=== PATIENT | male | born 1970 | race Caucasian/White ===

== ENCOUNTER 2018-06-25 02:32 | Emergency (ER) | payer MEDICAID ==
[~2018-06-25] VITALS: Ht 177.8 cm; Wt 81.6 kg
[2018-06-25] MEDS ORDERED: HYDROcodone-ACET 10/325MG TAB PO ONE (04:15)
[2018-06-25 04:40] VITALS: BP 124/85
== END 2018-06-25 04:42 | disposition home or self-care (01) ==
LOC: EDBD 02:32 → ER 02:32
DX: S16.1XXA Strain of muscle, fascia and tendon at neck level, initial encounter (principal); S29.019A Strain of muscle and tendon of unspecified wall of thorax, initial encounter; S30.0XXA Contusion of lower back and pelvis, initial encounter; F17.210 Nicotine dependence, cigarettes, uncomplicated; Z88.0 Allergy status to penicillin; Z88.1 Allergy status to other antibiotic agents; W11.XXXA Fall on and from ladder, initial encounter; Y93.89 Activity, other specified; Y99.8 Other external cause status; Y92.89 Other specified places as the place of occurrence of the external cause
CPT/HCPCS: 70450; 71250; 72125; 72128; 72131; 74176

== ENCOUNTER 2020-02-17 23:09 | Emergency (ER) | payer MEDICAID ==
[~2020-02-17] VITALS: Ht 177.8 cm; Wt 74.8 kg
[2020-02-18 00:16] LABS: Neutrophils % (auto) 78.8 % (37.0-80.0)
[2020-02-18 00:18] LABS: Basophils # (auto) 0.1 10 ^3/uL (0-0.2); Basophils % (auto) 0.7 % (0.0-2.0); Eosinophils # (auto) 0.1 10 ^3/uL (0-0.8); Eosinophils % (auto) 0.5 % (0.0-7.0); Hematocrit 44.5 % (41.0-53.0); Hemoglobin 14.7 g/dL (13.5-17.5); Lymphocytes # (auto) 1.6 10 ^3/uL (0.4-5.4); Lymphocytes % (auto) 12.1 % (10.0-50.0); Mean Corpuscular Hemoglobin 28.9 pg (28.0-32.0); Mean Corpuscular Hgb Conc. 33.1 g/dL (32.0-36.0); Mean Corpuscular Volume 87.3 fL (80.0-100.0); Monocytes # (auto) 1.1 10 ^3/uL (0-1.3); Monocytes % (auto) 7.9 % (0.0-12.0); Neutrophils # (auto) 10.7 10 ^3/uL (1.6-8.6); Platelet Count (auto) 515 10^3/uL (140-450); Red Cell Distribution Width 14.6 % (11.8-14.3); White Blood Cell 13.5 10^3/uL (4.4-10.8)
[2020-02-18 00:38] LABS: Albumin 4.1 g/dL (3.4-5.0); Calcium 9.7 mg/dL (8.5-10.1); Potassium 3.9 mmol/L (3.5-5.1)
[2020-02-18 00:42] LABS: Bilirubin, Total 0.3 mg/dL (0.2-1.0)
[2020-02-18 00:54] LABS: BUN/Creatinine Ratio 14.9
[2020-02-18 01:08] VITALS: BP 168/99
== END 2020-02-18 03:05 | disposition home or self-care (01) ==
LOC: ER 23:12
DX: S81.801A Unspecified open wound, right lower leg, initial encounter (principal); L03.115 Cellulitis of right lower limb; Z88.0 Allergy status to penicillin; Z88.1 Allergy status to other antibiotic agents; X58.XXXA Exposure to other specified factors, initial encounter; Y93.89 Activity, other specified; Y92.89 Other specified places as the place of occurrence of the external cause; Y99.8 Other external cause status
CPT/HCPCS: 36415; 73700; 80053; 83605; 85025; 87040; 93971

== ENCOUNTER 2021-01-18 22:31 | Emergency (ER) | payer MEDICAID ==
[~2021-01-18] VITALS: Ht 177.8 cm; Wt 86.2 kg
[2021-01-18] MEDS ORDERED: IBUPROFEN 600 MG TAB PO ONE (23:45)
[2021-01-18] MEDS ORDERED: SULFAMETHOX W/TRIMETH(800/160MG) DS TAB PO ONE (23:45)
[2021-01-18] MEDS ORDERED: HYDROcodone-ACET 10/325MG TAB PO ONE (23:45)
[2021-01-18] MEDS ORDERED: DOXYCYCLINE 100 MG TAB/CAP PO ONE (23:45)
[2021-01-19 02:16] VITALS: BP 136/80
== END 2021-01-19 03:05 | disposition left against medical advice (07) ==
LOC: ER 22:33
DX: S83.91XA Sprain of unspecified site of right knee, initial encounter (principal); L03.115 Cellulitis of right lower limb; F17.210 Nicotine dependence, cigarettes, uncomplicated; Z88.0 Allergy status to penicillin; Z88.1 Allergy status to other antibiotic agents; X50.1XXA Overexertion from prolonged static or awkward postures, initial encounter; Y93.89 Activity, other specified; Y92.89 Other specified places as the place of occurrence of the external cause; Y99.8 Other external cause status
CPT/HCPCS: 73562; 93971

== ENCOUNTER 2021-01-21 08:12 | Inpatient (IN) | payer MEDICAID ==
[~2021-01-21] VITALS: Ht 175.3 cm; Wt 87.3 kg
[2021-01-21] MEDS ORDERED: KETOROLAC TROMETH 60MG/2ML VIAL IM ONE (09:00)
[2021-01-21] MEDS ORDERED: SODIUM CHLORIDE 0.9% 1,000 ML IV ONE ×2 (10:00)
[2021-01-21] MEDS ORDERED: CLINDAMYCIN 900MG IV 50 ML IV ONE (10:00)
[2021-01-21 11:02] LABS: Basophils # (auto) 0 10 ^3/uL (0-0.2); Basophils % (auto) 0.5 % (0.0-2.0); Eosinophils # (auto) 0.4 10 ^3/uL (0-0.8); Hematocrit 38.9 % (41.0-53.0); Hemoglobin 13.3 g/dL (13.5-17.5); Lymphocytes # (auto) 1.9 10 ^3/uL (0.4-5.4); Lymphocytes % (auto) 24.2 % (10.0-50.0); Mean Corpuscular Hemoglobin 28.6 pg (28.0-32.0); Mean Corpuscular Hgb Conc. 34.1 g/dL (32.0-36.0); Mean Corpuscular Volume 83.8 fL (80.0-100.0); Monocytes # (auto) 0.9 10 ^3/uL (0-1.3); Monocytes % (auto) 10.7 % (0.0-12.0); Neutrophils # (auto) 4.8 10 ^3/uL (1.6-8.6); Neutrophils % (auto) 59.6 % (37.0-80.0); Nucleated Red Blood Cells % 0.1 %; Platelet Count (auto) 422 10^3/uL (140-450); Red Blood Cells 4.64 10^6/uL (4.5-5.90); Red Cell Distribution Width 14.2 % (11.8-14.3)
[2021-01-21 11:14] LABS: Albumin 3.4 g/dL (3.4-5.0); Anion Gap 4 (5-15); Blood Urea Nitrogen 12 mg/dL (7-18); Calcium 8.9 mg/dL (8.5-10.1); Carbon Dioxide 29 mmol/L (21-32); Chloride 103 mmol/L (98-107); Glucose 87 mg/dL (74-106); Potassium 3.8 mmol/L (3.5-5.1); Sodium 136 mmol/L (136-145)
[2021-01-21 11:19] LABS: Alanine Aminotransferase 22 U/L (16-61); Alkaline Phosphatase 73 U/L (45-117); Aspartate Aminotransferase 17 U/L (15-37); BUN/Creatinine Ratio 11.9; Bilirubin, Total 0.3 mg/dL (0.2-1.0); GFR African American 101 mL/min; GFR Non-African American 83 mL/min
[2021-01-21 11:20] LABS: INR 0.98 (0.9-1.15); Partial Thromboplastin Time 27.4 sec (23.0-31.2)
[2021-01-21] MEDS ORDERED: NITROGLYCERIN 0.4 MG SL TAB SL PRN (12:15)
[2021-01-21] MEDS ORDERED: MORPHINE SULF INJ 2 MG/ML SYRINGE 1ML IV PRN (12:15)
[2021-01-21] MEDS ORDERED: DOCUSATE SOD 100 MG CAP PO PRN (12:15)
[2021-01-21] MEDS ORDERED: TEMAZEPAM 15 MG CAP PO PRN (12:15)
[2021-01-21] MEDS ORDERED: ONDANSETRON HCL 4 MG/2 ML VIAL IV PRN (12:15)
[2021-01-21] MEDS ORDERED: HYDROcodone-ACET 5/325MG TAB PO PRN (12:15)
[2021-01-21] MEDS ORDERED: ACETAMINOPHEN 325 MG TAB PO PRN (12:15)
[2021-01-21] MEDS ORDERED: hydrALAZINE HCL 20 MG/ML VL IV PRN (12:30)
[2021-01-21] MEDS: amLODIPine BESYLATE 5 MG TAB PO SCH (12:40)
[2021-01-21] MEDS ORDERED: MORPHINE SULFATE 4 MG/ML SYR/VIAL IV ONE (13:30)
[2021-01-21] MEDS ORDERED: ONDANSETRON HCL 4 MG/2 ML VIAL IV ONE (13:30)
[2021-01-21] MEDS: CLINDAMYCIN 600MG IV 50 ML IV SCH (14:00)
[2021-01-21] MEDS: MORPHINE SULFATE 4 MG/ML SYR/VIAL IV PRN ×2 (16:13→20:57)
[2021-01-21] MEDS: GABAPENTIN 300 MG CAP PO SCH (16:14)
[2021-01-21 16:45] VITALS: BP 134/81
[2021-01-21] MEDS ORDERED: HYDR-4798 PO (17:42)
[2021-01-21] MEDS ORDERED: SULF800T7 PO (17:42)
[2021-01-21] MEDS ORDERED: NIC21P TOP (17:42)
[2021-01-21] MEDS ORDERED: PAR20T PO (17:42)
[2021-01-21] MEDS ORDERED: ALPR1TAB2 PO (17:42)
[2021-01-21] MEDS ORDERED: ASPI-231 PO (17:42)
[2021-01-22] MEDS: FAMOTIDINE 20 MG TAB PO SCH ×2 (00:01→07:51)
[2021-01-22] MEDS: ASCORBIC ACID 500 MG TAB PO SCH ×2 (00:01→07:51)
[2021-01-22] MEDS: GABAPENTIN 300 MG CAP PO SCH ×2 (00:02→05:37)
[2021-01-22] MEDS: CLINDAMYCIN 600MG IV 50 ML IV SCH ×2 (00:03→05:37)
[2021-01-22 00:24] VITALS: BP 141/94
[2021-01-22 05:41] VITALS: BP 143/74
[2021-01-22] MEDS: MORPHINE SULFATE 4 MG/ML SYR/VIAL IV PRN (07:50)
[2021-01-22 09:31] LABS: Potassium 3.9 mmol/L (3.5-5.1)
[2021-01-22 09:33] LABS: Basophils # (auto) 0 10 ^3/uL (0-0.2); Basophils % (auto) 0.5 % (0.0-2.0); Eosinophils # (auto) 0.4 10 ^3/uL (0-0.8); Eosinophils % (auto) 5.4 % (0.0-7.0); Hematocrit 42.7 % (41.0-53.0); Lymphocytes # (auto) 1.5 10 ^3/uL (0.4-5.4); Lymphocytes % (auto) 19.6 % (10.0-50.0); Mean Corpuscular Hemoglobin 27.9 pg (28.0-32.0); Mean Corpuscular Hgb Conc. 32.9 g/dL (32.0-36.0); Mean Corpuscular Volume 84.9 fL (80.0-100.0); Monocytes # (auto) 0.8 10 ^3/uL (0-1.3); Monocytes % (auto) 9.9 % (0.0-12.0); Neutrophils % (auto) 64.6 % (37.0-80.0); Platelet Count (auto) 382 10^3/uL (140-450); Red Blood Cells 5.02 10^6/uL (4.5-5.90); Red Cell Distribution Width 14.3 % (11.8-14.3); White Blood Cell 7.7 10^3/uL (4.4-10.8)
[2021-01-22] MEDS: amLODIPine BESYLATE 5 MG TAB PO SCH (09:42)
[2021-01-22 09:43] LABS: Albumin 3.3 g/dL (3.4-5.0); BUN/Creatinine Ratio 11.8; Bilirubin, Total 0.4 mg/dL (0.2-1.0); Calcium 8.8 mg/dL (8.5-10.1)
[2021-01-22] MEDS ORDERED: MULTIPLE VITAMIN TAB PO SCH (10:00)
[2021-01-22] MEDS ORDERED: ENOXAPARIN SOD 40 MG/0.4 ML SYRINGE SC SCH (10:00)
[2021-01-22] MEDS ORDERED: PARoxetine 20 MG TAB PO SCH (10:00)
[2021-01-22] MEDS ORDERED: ZINC SULFATE 220mg CAP or TAB PO SCH (10:00)
== END 2021-01-22 10:15 | disposition left against medical advice (07) | DRG 383 ==
LOC: ER 08:12 → EDUNIT# 08:12 → EDBD 08:12 → TELE 12:07 → TELE-WESTW 15:23
PROVIDERS: ADMIT Nurse Practitioner; ATTEND Nurse Practitioner
DX: L03.115 Cellulitis of right lower limb (principal); F10.10 Alcohol abuse, uncomplicated; F11.10 Opioid abuse, uncomplicated; F17.200 Nicotine dependence, unspecified, uncomplicated; I10 Essential (primary) hypertension; Z20.822 Contact with and (suspected) exposure to COVID-19; Z88.0 Allergy status to penicillin; Z88.1 Allergy status to other antibiotic agents
CPT/HCPCS: 36415; 71045; 73700; 80053; 83605; 84484; 85025; 85610; 85730; 87040; 87081; 87426; 93005; 96361; 96365; G0378; J2405; J3490

== ENCOUNTER 2023-11-23 18:23 | Emergency (ER) | payer MEDICAID ==
[~2023-11-23] VITALS: Ht 177.8 cm; Wt 82.0 kg
[~2023-11-23 18:23] MED LIST: ALPR1TAB2 PO; ASPI1TAB20 PO; HYDR-4798 PO; NIC21P TOP; PAR20T PO; SULF800T23 PO
[2023-11-23] MEDS: LIDOCAINE 1% HCL (LOCAL ANESTH.) INJ 20ML MDV ID ONE (19:05)
[2023-11-23] MEDS: TETANUS-DIPTH-ACEL PERTUSSIS 0.5ML SYR Tdap IM ONE (19:07)
[2023-11-23 20:00] VITALS: PULSE 78; RESP 13; TEMP 98; O2SAT 92
[2023-11-23] MEDS: HYDROcodone-ACET 10/325MG TAB PO ONE (20:44)
[2023-11-23] MEDS ORDERED: AMOXICILLIN/CLAVUL 875 MG TAB PO ONE (21:45)
[2023-11-23] MEDS ORDERED: AUG875T PO (21:59)
[2023-11-23] MEDS ORDERED: ACE3T PO (21:59)
[2023-11-23] MEDS ORDERED: IBUP-1455 PO (21:59)
[2023-11-23] MEDS ORDERED: CLIN300C70 PO (22:31)
[2023-11-23] MEDS ORDERED: BACDST PO (22:31)
[2023-11-23] MEDS: SULFAMETHOX W/TRIMETH(800/160MG) DS TAB PO ONE (22:48)
[2023-11-23] MEDS: CLINDAMYCIN HCL 150 MG CAP PO ONE (22:49)
[2023-11-23 22:55] VITALS: BP 147/89; PULSE 87; RESP 14; O2SAT 95
== END 2023-11-23 22:55 | disposition home or self-care (01) ==
LOC: EDBD 18:23 → ER 18:23
DX: S31.31XA Laceration without foreign body of scrotum and testes, initial encounter (principal); S31.35XA Open bite of scrotum and testes, initial encounter; I10 Essential (primary) hypertension; Z87.891 Personal history of nicotine dependence; Z88.0 Allergy status to penicillin; Z88.1 Allergy status to other antibiotic agents; W54.0XXA Bitten by dog, initial encounter; Y93.89 Activity, other specified; Y92.89 Other specified places as the place of occurrence of the external cause; Y99.8 Other external cause status
CPT/HCPCS: 12001; 76870; 90471; 90715

== ENCOUNTER 2024-03-30 21:32 | Inpatient (IN) | payer MEDICAID ==
[~2024-03-30] VITALS: Ht 177.8 cm; Wt 81.8 kg
[~2024-03-30 21:32] MED LIST changes: +ACE3T PO; +BACDST PO; +CLIN1CAP70 PO; +IBUP-1455 PO
[2024-03-30 22:39] LABS: Basophils # (auto) 0 10 ^3/uL (0-0.2); Basophils % (auto) 0.2 % (0.0-2.0); Eosinophils # (auto) 0 10 ^3/uL (0-0.8); Hematocrit 40.7 % (41.0-53.0); Hemoglobin 13.8 g/dL (13.5-17.5); Lymphocytes # (auto) 0.3 10 ^3/uL (0.4-5.4); Lymphocytes % (auto) 3.8 % (10.0-50.0); Mean Corpuscular Hemoglobin 29.3 pg (28.0-32.0); Mean Corpuscular Hgb Conc. 33.9 g/dL (32.0-36.0); Mean Corpuscular Volume 86.5 fL (80.0-100.0); Monocytes # (auto) 0.5 10 ^3/uL (0-1.3); Monocytes % (auto) 5.6 % (0.0-12.0); Neutrophils # (auto) 7.9 10 ^3/uL (1.6-8.6); Neutrophils % (auto) 90.4 % (37.0-80.0); Red Blood Cells 4.71 10^6/uL (4.5-5.90); Red Cell Distribution Width 13.5 % (11.8-14.3); White Blood Cell 8.8 10^3/uL (4.4-10.8)
[2024-03-30 22:58] LABS: INR 1.03 (0.9-1.15); Prothrombin Time 10.9 sec (9.3-11.8)
[2024-03-30 23:04] VITALS: PULSE 96; RESP 39; O2SAT 92
[2024-03-30 23:04] LABS: Alanine Aminotransferase 37 U/L (7-40); Albumin 4.1 g/dL (3.2-4.8); Alkaline Phosphatase 60 U/L (46-116); Anion Gap 9 (5-15); Aspartate Aminotransferase 50 U/L (13-40); BUN/Creatinine Ratio 17.4 (10.0-20.0); Blood Alcohol < 3.0 mg/dL (<10); Blood Urea Nitrogen 12 mg/dL (9-23); Calcium 9.1 mg/dL (8.5-10.1); Carbon Dioxide 23 mmol/L (20-30); Chloride 103 mmol/L (98-107); Glucose 115 mg/dL (74-106); Sodium 135 mmol/L (136-145)
[2024-03-30 23:05] LABS: Bilirubin, Total 0.5 mg/dL (0.2-1.0); Total Protein 6.3 g/dL (5.7-8.2)
[2024-03-31] VITALS (7 sets, daily range): BP systolic 118–132; BP diastolic 63–69; PULSE 66–92; RESP 14–20; TEMP 97.6–100.1; O2SAT 96–100
[2024-03-31] MEDS: FUROSEMIDE 40 MG/4 ML VIAL IV ONE (08:26)
[2024-03-31] MEDS: CLINDAMYCIN 900MG IV 50 ML IV ONE (08:26)
[2024-03-31 08:44] LABS: Urine Bacteria None Seen /hpf (None Seen)
[2024-03-31 08:59] LABS: Urine Blood Negative /uL (Negative); Urine Clarity Clear (Clear); Urine Color Yellow (Yellow); Urine Protein, UAD TRACE (Negative); Urine Specific Gravity 1.027 (1.001-1.035); Urine Urobilinogen 3 mg/dL (Negative); Urine WBC <1 /hpf (0 - 3)
[2024-03-31 09:12] LABS: Amphetamine Screen, Urine Pos (NEGATIVE); Barbiturate Scree,Urine Neg (NEGATIVE); Benzodiazephine Screen, Urine Neg (NEGATIVE); Cannabinoid Screen, Urine Neg (NEGATIVE); Cocaine Screen, Urine Neg (NEGATIVE); Opiate Scree,Urine Neg (NEGATIVE); Phencyclidine Screen, Urine Neg (NEGATIVE)
[2024-03-31] MEDS ORDERED: MORPHINE SULFATE INJ 2 MG/ml SYRG IV PRN (11:45)
[2024-03-31] MEDS ORDERED: NITROGLYCERIN 0.4 MG SL TAB SL PRN (11:45)
[2024-03-31] MEDS ORDERED: DOCUSATE SOD 100 MG CAP PO PRN (11:45)
[2024-03-31] MEDS: NALOXONE HCL 0.4 MG/ML VIAL IV ONE (12:06)
[2024-03-31] MEDS: SODIUM CHLORIDE 0.9% 1,000 ML IV SCH (12:08)
[2024-03-31] MEDS: ENOXAPARIN SOD 40 MG/0.4 ML SYRINGE SC SCH (12:08)
[2024-03-31] MEDS: CLINDAMYCIN 300MG IV 50 ML IV SCH (17:49)
[2024-04-01] VITALS (8 sets, daily range): BP systolic 104–146; BP diastolic 68–88; PULSE 61–86; RESP 17–21; TEMP 97.9–99.2; O2SAT 92–99
[2024-04-01] MEDS: MORPHINE SULFATE INJ 2 MG/ml SYRG IV PRN (11:08)
[2024-04-01] MEDS: POTASSIUM EFFERVESENT TAB 25 MEQ PO ONE (11:08)
[2024-04-01] MEDS: LOPERAMIDE HCL 2 MG CAP/TAB PO ONE (13:13)
[2024-04-01] MEDS: ONDANSETRON HCL 4 MG/2 ML VIAL IV PRN (13:29)
[2024-04-01] MEDS ORDERED: MEROPENEM 1GM IVPB 50 ML IV SCH (14:00)
[2024-04-01] MEDS ORDERED: VANCOMYCIN PER PHARMACY 0 MG IV SCH (14:45)
[2024-04-01] MEDS ORDERED: NICO14DI29 TD (15:28)
[2024-04-01] MEDS: VANCOMYCIN 1GM/200ML 200 ML IV ONE (16:12)
[2024-04-01] MEDS: NICOTINE 21MG/24 HR TOPICAL PATCH TD ONE (16:13)
[2024-04-01] MEDS: MEROPENEM 1GM IVPB 50 ML IV SCH (17:33)
[2024-04-01] MEDS ORDERED: PERCOT PO (18:31)
[2024-04-01 20:21] LABS: Basophils # (auto) 0 10 ^3/uL (0-0.2); Basophils % (auto) 0.1 % (0.0-2.0); Eosinophils # (auto) 0 10 ^3/uL (0-0.8); Hematocrit 40.7 % (41.0-53.0); Hemoglobin 13.9 g/dL (13.5-17.5); Lymphocytes # (auto) 1.6 10 ^3/uL (0.4-5.4); Lymphocytes % (auto) 8.2 % (10.0-50.0); Mean Corpuscular Hemoglobin 29.6 pg (28.0-32.0); Mean Corpuscular Hgb Conc. 34.2 g/dL (32.0-36.0); Mean Corpuscular Volume 86.5 fL (80.0-100.0); Monocytes % (auto) 5.2 % (0.0-12.0); Neutrophils # (auto) 17.3 10 ^3/uL (1.6-8.6); Neutrophils % (auto) 86.5 % (37.0-80.0); Red Blood Cells 4.71 10^6/uL (4.5-5.90); Red Cell Distribution Width 13.8 % (11.8-14.3); White Blood Cell 19.9 10^3/uL (4.4-10.8)
[2024-04-01 20:50] LABS: Alanine Aminotransferase 22 U/L (7-40); Albumin 3.5 g/dL (3.2-4.8); Alkaline Phosphatase 51 U/L (46-116); Anion Gap 12 (5-15); Aspartate Aminotransferase 12 U/L (13-40); BUN/Creatinine Ratio 19.6 (10.0-20.0); Bilirubin, Total 0.4 mg/dL (0.2-1.0); Blood Urea Nitrogen 11 mg/dL (9-23); Calcium 8.9 mg/dL (8.7-10.4); Carbon Dioxide 19 mmol/L (20-30); Chloride 102 mmol/L (98-107); Glucose 103 mg/dL (74-106); Potassium 2.9 mmol/L (3.5-5.1); Sodium 133 mmol/L (136-145); Total Protein 6.1 g/dL (5.7-8.2)
[2024-04-01] MEDS: LOPERAMIDE HCL 2 MG CAP/TAB PO PRN (23:05)
[2024-04-02] VITALS (8 sets, daily range): BP systolic 115–130; BP diastolic 63–85; PULSE 62–79; RESP 17–21; TEMP 97.7–98.2; O2SAT 93–98
[2024-04-02] MEDS ORDERED: VANCOMYCIN 1GM/200ML 200 ML IV SCH
[2024-04-02] MEDS: POTASSIUM CHL 20 Meq TABLET PO ONE ×2 (03:13→09:31)
[2024-04-02] MEDS: NICOTINE 21MG/24 HR TOPICAL PATCH TD SCH (09:31)
[2024-04-02 11:45] LABS: Basophils # (auto) 0 10 ^3/uL (0-0.2); Basophils % (auto) 0.4 % (0.0-2.0); Eosinophils # (auto) 0 10 ^3/uL (0-0.8); Eosinophils % (auto) 0.1 % (0.0-7.0); Hematocrit 31.7 % (41.0-53.0); Lymphocytes # (auto) 1.2 10 ^3/uL (0.4-5.4); Lymphocytes % (auto) 11.2 % (10.0-50.0); Mean Corpuscular Hemoglobin 29.9 pg (28.0-32.0); Mean Corpuscular Hgb Conc. 34.8 g/dL (32.0-36.0); Mean Corpuscular Volume 86.1 fL (80.0-100.0); Monocytes # (auto) 0.6 10 ^3/uL (0-1.3); Monocytes % (auto) 5.5 % (0.0-12.0); Neutrophils # (auto) 8.6 10 ^3/uL (1.6-8.6); Neutrophils % (auto) 82.8 % (37.0-80.0); Red Blood Cells 3.68 10^6/uL (4.5-5.90); White Blood Cell 10.4 10^3/uL (4.4-10.8)
[2024-04-02 11:59] LABS: Alanine Aminotransferase 19 U/L (7-40); Alkaline Phosphatase 39 U/L (46-116); Anion Gap 5 (5-15); Aspartate Aminotransferase 11 U/L (13-40); BUN/Creatinine Ratio 22.2 (10.0-20.0); Bilirubin, Total 0.3 mg/dL (0.2-1.0); Blood Urea Nitrogen 10 mg/dL (9-23); Calcium 7.7 mg/dL (8.5-10.1); Carbon Dioxide 23 mmol/L (20-30); Chloride 109 mmol/L (98-107); Glucose 123 mg/dL (74-106); Sodium 137 mmol/L (136-145)
[2024-04-02] MEDS: PANTOPRAZOLE 40 MG/10 ML VIAL INJ IV ONE (17:09)
[2024-04-03] VITALS (7 sets, daily range): BP systolic 113–149; BP diastolic 71–90; PULSE 54–76; RESP 16–19; TEMP 97.3–98.4; O2SAT 90–97
[2024-04-03] MEDS: PANTOPRAZOLE 40 MG/10 ML VIAL INJ IV SCH (09:59)
[2024-04-03 13:29] LABS: Basophils # (auto) 0.1 10 ^3/uL (0-0.2); Basophils % (auto) 0.8 % (0.0-2.0); Eosinophils # (auto) 0.1 10 ^3/uL (0-0.8); Eosinophils % (auto) 1.6 % (0.0-7.0); Lymphocytes # (auto) 1.8 10 ^3/uL (0.4-5.4); Lymphocytes % (auto) 24.8 % (10.0-50.0); Mean Corpuscular Hemoglobin 29.7 pg (28.0-32.0); Mean Corpuscular Hgb Conc. 34.3 g/dL (32.0-36.0); Mean Corpuscular Volume 86.3 fL (80.0-100.0); Monocytes # (auto) 0.6 10 ^3/uL (0-1.3); Monocytes % (auto) 8.2 % (0.0-12.0); Neutrophils # (auto) 4.7 10 ^3/uL (1.6-8.6); Neutrophils % (auto) 64.6 % (37.0-80.0); Nucleated Red Blood Cells % 0.1 %; White Blood Cell 7.2 10^3/uL (4.4-10.8)
[2024-04-03 13:41] LABS: Chloride 108 mmol/L (98-107); Potassium 3.6 mmol/L (3.5-5.1); Sodium 140 mmol/L (136-145)
[2024-04-03 13:42] LABS: Anion Gap 5 (5-15); Calcium 8.7 mg/dL (8.5-10.1); Carbon Dioxide 27 mmol/L (20-30)
[2024-04-03 13:47] LABS: BUN/Creatinine Ratio 15.9 (10.0-20.0); Blood Urea Nitrogen 10 mg/dL (9-23); Glucose 101 mg/dL (74-106)
[2024-04-03] MEDS: cefTRIAXone 1GM/50ML D5W 50 ML IV SCH (17:52)
[2024-04-04] VITALS (8 sets, daily range): BP systolic 117–157; BP diastolic 69–97; PULSE 59–73; RESP 16–18; TEMP 97.3–98.5; O2SAT 93–99
[2024-04-04] MEDS: ENOXAPARIN SOD 40 MG/0.4 ML SYRINGE SC SCH (09:19)
[2024-04-04 09:36] LABS: Hepatitis B Surface Antigen Negative (Negative)
[2024-04-04 09:44] LABS: Basophils # (auto) 0.1 10 ^3/uL (0-0.2); Basophils % (auto) 0.8 % (0.0-2.0); Eosinophils # (auto) 0.3 10 ^3/uL (0-0.8); Eosinophils % (auto) 3.1 % (0.0-7.0); Hematocrit 37.4 % (41.0-53.0); Hemoglobin 12.7 g/dL (13.5-17.5); Lymphocytes # (auto) 1.7 10 ^3/uL (0.4-5.4); Lymphocytes % (auto) 20.2 % (10.0-50.0); Mean Corpuscular Hemoglobin 30.1 pg (28.0-32.0); Mean Corpuscular Volume 88.3 fL (80.0-100.0); Monocytes # (auto) 0.7 10 ^3/uL (0-1.3); Monocytes % (auto) 8.3 % (0.0-12.0); Neutrophils # (auto) 5.6 10 ^3/uL (1.6-8.6); Neutrophils % (auto) 67.6 % (37.0-80.0); Red Blood Cells 4.24 10^6/uL (4.5-5.90); Red Cell Distribution Width 14.2 % (11.8-14.3); White Blood Cell 8.3 10^3/uL (4.4-10.8)
[2024-04-04 09:57] LABS: Chloride 109 mmol/L (98-107); Potassium 3.5 mmol/L (3.5-5.1); Sodium 138 mmol/L (136-145)
[2024-04-04 09:58] LABS: Anion Gap 4 (5-15); Carbon Dioxide 25 mmol/L (20-30)
[2024-04-04 10:03] LABS: BUN/Creatinine Ratio 10.7 (10.0-20.0); Blood Urea Nitrogen 6 mg/dL (9-23); Glucose 95 mg/dL (74-106)
[2024-04-04 10:20] LABS: Calcium 8.3 mg/dL (8.5-10.1)
[2024-04-04 11:34] LABS: Hepatitis C Antibody Reactive (Negative)
[2024-04-04] MEDS: FUROSEMIDE 40 MG/4 ML VIAL IV ONE (13:08)
[2024-04-05] VITALS (8 sets, daily range): BP systolic 121–151; BP diastolic 73–98; PULSE 59–85; RESP 16–18; TEMP 97.8–99.2; O2SAT 94–96
[2024-04-05] MEDS: cefTRIAXone 1GM/50ML D5W 50 ML IV SCH (12:12)
[2024-04-05] MEDS: FUROSEMIDE 20 MG/2 ML VIAL IV SCH (12:12)
[2024-04-05 13:15] LABS: Erythrocyte Sedimentation Rate 25 mm/hr (0-20)
[2024-04-06 05:00] VITALS: BP 149/88; PULSE 78; RESP 19; TEMP 98.8; O2SAT 97
[2024-04-06 08:00] VITALS: PULSE 76; RESP 18; O2SAT 96
[2024-04-06 08:32] VITALS: BP 154/96; PULSE 67; RESP 15; TEMP 97.6; O2SAT 97
[2024-04-06] MEDS: LISINOPRIL 5 MG TAB PO SCH (10:00)
[2024-04-06] MEDS ORDERED: IOHEXOL 300 MG/ML 100ML BOTTLE IJ ONE (12:29)
[2024-04-06 12:52] VITALS: BP 156/85; PULSE 69; RESP 15; TEMP 97.6; O2SAT 97
[2024-04-06 16:21] VITALS: BP 133/93; PULSE 68; RESP 16; TEMP 97.2; O2SAT 95
[2024-04-06 16:33] VITALS: BP 112/76; PULSE 76; RESP 16
== END 2024-04-06 20:10 | disposition home or self-care (01) | DRG 383 ==
LOC: ER 21:32 → EDUNIT# 21:32 → EDBD 21:32 → OVERFLOW 03-31 11:41 → ER 03-31 11:41 → CENTRAL 03-31 15:45
PROVIDERS: ADMIT Internal Medicine; ATTEND Internal Medicine
PROC: 05H933Z Insertion of Infusion Device into Right Brachial Vein, Percutaneous Approach (ICD-10-PCS; principal; 2024-04-02)
DX: L03.116 Cellulitis of left lower limb (principal); J96.01 Acute respiratory failure with hypoxia; G92.9 Unspecified toxic encephalopathy; R78.81 Bacteremia; L03.115 Cellulitis of right lower limb; I11.0 Hypertensive heart disease with heart failure; E87.6 Hypokalemia; B19.20 Unspecified viral hepatitis C without hepatic coma; I50.32 Chronic diastolic (congestive) heart failure; E86.0 Dehydration; F11.90 Opioid use, unspecified, uncomplicated; F17.200 Nicotine dependence, unspecified, uncomplicated; Z74.01 Bed confinement status; Z82.49 Family history of ischemic heart disease and other diseases of the circulatory system; Z88.0 Allergy status to penicillin; B96.89 Other specified bacterial agents as the cause of diseases classified elsewhere
CPT/HCPCS: 36415; 71045; 73701; 80048; 80053; 80307; 80320; 81001; 83605; 83735; 83880; 84484; 85025; 85610; 85652; 85730; 86141; 86803; 87040; 87077; 87081; 87086; 87186; 87340; 93005; 93306; 93970; G0378; J2185; J2405; J2470; J3490

== ENCOUNTER 2024-12-29 01:29 | Inpatient (IN) | payer MEDICAID ==
[2024-12-29] VITALS (8 sets, daily range): BP systolic 138–158; BP diastolic 90–91; PULSE 86–109; RESP 16–22; TEMP 97.9–98.9; O2SAT 96–99
[~2024-12-29] VITALS: Ht 165.1 cm; Wt 76.2 kg
[~2024-12-29 01:29] MED LIST changes: -ALPR1TAB2 PO; -ASPI1TAB20 PO; -CLIN1CAP70 PO; -HYDR-4798 PO; -NIC21P TOP; +NICO14DI29 TD; -PAR20T PO; +PERCOT PO; -SULF800T23 PO
--- NOTE | 2024-12-29 03:53 | ED.PDOC ---
Musculoskeletal HPI Comments Pt BIBA with C/O left leg swelling and pain starting today. Pt has noted redness and swelling with skin breakdown and oozing to the left lower leg. Denies fever, chills, nausea, vomiting, chest pain, difficulty breathing, shortness of breath, abdominal pain, diarrhea, recent travel or ill contacts. Chief Complaint: Lower Extremity Time Seen by MD: 01:39 Primary Care Provider: NONE Reviewed Notes: Nurses Notes, Medications, Allergies Allergies: Coded Allergies: Amoxicillin (Verified Allergy, Unknown, 01/21/21) Penicillins (Verified Allergy, Unknown, 01/21/21) Home Meds Active Scripts Sulfamethoxazole W/Trimethopri (Bactrim Ds Tablet) 1 Tab Tb, 1 TAB PO BID for 10 Days, #20 TAB Prov:SANJAY GRIER PAC 11/23/23 Acetaminophen W/ Codeine (Tylenol W/Cod #3) 1 Tab Tb, 1 TAB PO Q6HP PRN, #15 TAB Prov:SANJAY GRIER PAC 11/23/23 Ibuprofen Micronized (Ibuprofen) 800 Mg Tab, 800 MG PO Q8HP PRN, #30 TAB Prov:SANJAY GRIER PAC 11/23/23 Reported Medications Oxycodone W/ Acetaminophen (Percocet 5/325MG) 1 Tab Tb, 2 TAB PO QID for pain, TAB 04/01/24 Nicotine (Nicotine Transdermal Syst) 14 Mg/24 Hr Dis, 14 MG TD DAILY, DIS 04/01/24 Information Source: Patient Mode of Arrival: EMS Past Medical History PAST MEDICAL HISTORY: CHF, HTN Surgical History: Denies all surgeries Family History Family History: Reviewed,noncontributory to illness, No family hx of Heart dipti Social History Smoker: Quit Less Than 1 Year, Cigarettes, Less Than 1 Pack/Day Alcohol: Denies ETOH Use Drugs: Heroin, Methamphetamine, Other Lives In: Home Constitutional: denies: chills, diaphoresis, fatigue, fever, malaise, sweats, weakness, others EENTM: denies: blurred vision, double vision, ear bleeding, ear discharge, ear drainage, ear pain, ear ringing, eye pain, eye redness, hearing loss, mouth pain, mouth swelling, nasal discharge, nose bleeding, nose congestion, nose pain, photophobia, tearing, throat pain, throat swelling, voice changes, others Respiratory: denies: cough, hemoptysis, orthopnea, SOB at rest, shortness of breath, SOB with excertion, stridor, wheezing, others Cardiovascular: denies: chest pain, dizzy spells, diaphoresis, Dyspnea on exertion, edema, irregular heart beat, left arm pain, lightheadedness, pa lpitations, PND, syncope, others Gastrointestinal: denies: abdomen distended, abdominal pain, blood streaked bowels, constipated, diarrhea, dysphagia, difficulty swallowing, hematemesis, melena, nausea, poor appetite, poor fluid intake, rectal bleeding, rectal pain, vomiting, others Genitourinary: denies: burning, dysuria, flank pain, frequency, hematuria, incontinence, penile discharge, penile sore, pain, testicle pain, testicle swelling, urgency, others Neurological: denies: dizziness, fainting, headache, left sided numbness, left sided weakness, numbness, paresthesia, pre-existing deficit, right sided numbness, right sided weakness, seizure, speech problems, tingling, tremors, weakness, others Musculoskeletal: denies: back pain, gout, joint pain, joint swelling, muscle pain, muscle stiffness, neck pain, others Integumetry: reports: wounds (LEFT LOWER LEG); denies: bruises, change in color, change in hair/nails, dryness, laceration, lesions, lumps, rash, others Allergic/Immunocompromised: denies: Difficulty Healing, Frequent Infections, Hives, Itching, others Hematologic/Lymphatic: denies: anemia, blood clots, easy bleeding, easy bruising, swollen glands, others Endocrine: denies: excessive hunger, excessive sweating, excessive thirst, excessive urination, flushing, intolerance to cold, intolerance to heat, unexplained weight gain, unexplained weight loss, others Psychiatric: denies: anxiety, bipolar disorder, depression, hopeless, panic disorder, schizophrenia, sleepless, suicidal, others Physical Exam General Appearance: No Apparent Distress, Normal HEENT: Pharynx Normal Neck: Full Range of Motion, Non-Tender Respiratory: Lungs Clear, No Respiratory Distress, Normal Breath Sounds Cardiovascular: No Edema, No JVD, No Murmur, No Gallop, Normal Peripheral Pulses, Regular Rate/Rhythm Breast Exam: Deferred Gastrointestinal: No Organomegaly, Non Tender, No Pulsatile Mass, Normal Bowel Sounds, Soft Genitalia: Deferred Pelvic: Deferred Rectal: Deferred Extremities: Calf tenderness, Inflammation, Leg edema, Normal capillary refill, Pedal edema, Swelling Musculoskeletal : Apperance: Normal Neurologic: Alert, flavoring machine operator II-XII nml as Tested, No Motor Deficits, Normal Affect, Normal Mood, No Sensory Deficits Cerebellar Function: Normal Reflexes: Normal Skin: Dry, Normal Color, Warm Lymphatic: No Adenopathy Was a procedure done? Was a procedure done?: No Differential Diagnosis EXT Differential Diagnosis: Cellulitis, Deep Vein Thrombosis, Compartment Syndrome X-Ray, Labs, Meds, VS Vital Signs Date Time Temp Pulse Resp B/P (MAP) Pulse Ox O2 Delivery O2 Flow Rate FiO2 12/29/24 05:37 109 22 96 Room Air* 0 21 12/29/24 05:32 98.2 109 22 159/98 (118) 98 98.2 12/29/24 02:58 109 16 99 Room Air 12/29/24 02:58 98.4 109 16 160/98 (118) 99 98.4 12/29/24 01:35 98.4 109 16 160/98 (118) 99 98.4 Lab Test 12/29/24 07:01 12/29/24 03:40 Range/Units Lactic Acid Level 1.0 0.4-2.0 mmol/L White Blood Count 17.4 H 4.4-10.8 10^3/uL Red Blood Count 3.89 L 4.5-5.90 10^6/uL Hemoglobin 11.7 L 13.5-17.5 g/dL Hematocrit 34.8 L 41.0-53.0 % Mean Corpuscular Volume 89.6 80.0-100.0 fL Mean Corpuscular Hemoglobin 30.1 28.0-32.0 pg Mean Corpuscular Hemoglobin Concent 33.6 32.0-36.0 g/dL Red Cell Distribution Width 14.3 11.8-14.3 % Platelet Count 402 140-450 10^3/uL Mean Platelet Volume 7.4 6.9-10.8 fL Neutrophils (%) (Auto) 79.7 37.0-80.0 % Lymphocytes (%) (Auto) 11.8 10.0-50.0 % Monocytes (%) (Auto) 7.1 0.0-12.0 % Eosinophils (%) (Auto) 0.5 0.0-7.0 % Basophils (%) (Auto) 0.9 0.0-2.0 % Neutrophils # (Auto) 13.8 H 1.6-8.6 10 ^3/uL Lymphocytes # (Auto) 2.1 0.4-5.4 10 ^3/uL Monocytes # (Auto) 1.2 0-1.3 10 ^3/uL Eosinophils # (Auto) 0.1 0-0.8 10 ^3/uL Basophils # (Auto) 0.2 0-0.2 10 ^3/uL Nucleated Red Blood Cells 0.1 % Sodium Level 134 L 136-145 mmol/L Potassium Level 3.9 3.5-5.1 mmol/L Chloride Level 99 98-107 mmol/L Carbon Dioxide Level 24 20-31 mmol/L Anion Gap 11 5-15 Blood Urea Nitrogen 8 L 9-23 mg/dL Creatinine 0.62 L 0.700-1.30 mg/dL Glomerular Filtration Rate Calc 114 >90 mL/min BUN/Creatinine Ratio 12.9 10.0-20.0 Serum Glucose 120 H 74-106 mg/dL Hemoglobin A1c 5.6 <5.7 % A1C Calcium Level 9.2 8.7-10.4 mg/dL Total Bilirubin 0.2 0.2-1.0 mg/dL Aspartate Amino Transferase (AST) 23 13-40 U/L Alanine Aminotransferase (ALT) 21 7-40 U/L Alkaline Phosphatase 54 46-116 U/L B-Type Natriuretic Peptide 44.29 0-100 pg/mL Total Protein 7.3 5.7-8.2 g/dL Albumin 4.0 3.2-4.8 g/dL Triglycerides Level 91 < 150 mg/dL Cholesterol Level 120 < 200 mg/dL LDL Cholesterol 79 < 100 mg/dL HDL Cholesterol 27 L 40-59 mg/dL Current Medications Medications (Trade) Dose Ordered Sig/Kiana Route Start Time Stop Time Status Last Admin Vancomycin HCl 250 ml @ 250 mls/hr ONCE ONCE IV 12/29/24 04:30 12/29/24 05:29 DC 12/29/24 07:00 Oxycodone/ Acetaminophen (Percocet 5/ 325MG Tablet) 1 tab ONCE ONCE PO 12/29/24 05:00 12/29/24 05:01 DC 4/6/25 05:35 X-Ray, Labs, Meds, VS Comment Imaging: Left lower extremity ultrasound service tech paged. Patient was a difficult stick difficulty obtaining enough blood work for blood cultures patient require ultrasound guided IV for further blood work and IV vancomycin. Patient placed for admission with hospitalist for left lower extremity cellulitis, and leukocytosis still pending venous Doppler. Ultrasound left lower extremity Impression: 1. No left femoropopliteal venous thrombosis. 2. Enlarged left inguinal lymph node. CBC [id number] MEDS: Vancomycin 1 g IV piggyback Percocet 5 mg p.o. PLAN: Placed for hospitalist for leukocytosis and left lower extremity cellulitis. Time of 1ST Reevaluation: 04:59 Reevaluation 1ST: Unchanged Patient Education/Counseling: Diagnosis, Treatment, Prognosis, Need For Follow Up Family Education/Counseling: No Family Present Departure 1 Departure Time of Disposition: 04:55 Impression: Primary Impression: Cellulitis of left lower leg Additional Impression: Leukocytosis Qualified Codes: D72.829 - Elevated white blood cell count, unspecified Disposition: 09 ADMITTED INPATIENT Condition: Stable Discharged With: Self Critical Care Note Critical Care Time?: No Stability Stability form required: ARABELLA Akbar Dec 29, 2024 03:53
[2024-12-29 03:54] LABS: Eosinophils # (auto) 0.1 10 ^3/uL (0-0.8); Eosinophils % (auto) 0.5 % (0.0-7.0)
[2024-12-29 03:57] LABS: Basophils # (auto) 0.2 10 ^3/uL (0-0.2); Basophils % (auto) 0.9 % (0.0-2.0); Hematocrit 34.8 % (41.0-53.0); Hemoglobin 11.7 g/dL (13.5-17.5); Lymphocytes # (auto) 2.1 10 ^3/uL (0.4-5.4); Lymphocytes % (auto) 11.8 % (10.0-50.0); Mean Corpuscular Hemoglobin 30.1 pg (28.0-32.0); Mean Corpuscular Hgb Conc. 33.6 g/dL (32.0-36.0); Mean Corpuscular Volume 89.6 fL (80.0-100.0); Monocytes # (auto) 1.2 10 ^3/uL (0-1.3); Monocytes % (auto) 7.1 % (0.0-12.0); Neutrophils # (auto) 13.8 10 ^3/uL (1.6-8.6); Neutrophils % (auto) 79.7 % (37.0-80.0); Nucleated Red Blood Cells % 0.1 %; Platelet Count (auto) 402 10^3/uL (140-450); Red Blood Cells 3.89 10^6/uL (4.5-5.90); Red Cell Distribution Width 14.3 % (11.8-14.3); White Blood Cell 17.4 10^3/uL (4.4-10.8)
[2024-12-29 04:08] LABS: Alanine Aminotransferase 21 U/L (7-40); Alkaline Phosphatase 54 U/L (46-116); Anion Gap 11 (5-15); Aspartate Aminotransferase 23 U/L (13-40); BUN/Creatinine Ratio 12.9 (10.0-20.0); Calcium 9.2 mg/dL (8.7-10.4); Carbon Dioxide 24 mmol/L (20-31); Chloride 99 mmol/L (98-107); Potassium 3.9 mmol/L (3.5-5.1); Total Protein 7.3 g/dL (5.7-8.2)
[2024-12-29 04:17] LABS: Bilirubin, Total 0.2 mg/dL (0.2-1.0); Blood Urea Nitrogen 8 mg/dL (9-23); Glucose 120 mg/dL (74-106); Sodium 134 mmol/L (136-145)
--- NOTE | 2024-12-29 05:00 | DVH ---
Left lower extremity venous duplex Clinical History: left lower leg edema, erythema, warmth and pain Comparison: RT LOWER DVT on DOS: 01/19/21, R VENOUS DVT LTD UNILATERAL on DOS: 02/18/20 Technique: Duplex Doppler evaluation of the deep venous system of the left lower extremity from the common femor al vein to the popliteal vein including color Doppler and spectral/pulsed waveform analysis was perfo rmed. Findings: The common femoral vein demonstrates appropriate compressibility and waveform variability. There is compressibility/patency of the great saphenous vein at the proximal thigh. The femoral vein demonstrates appropriate compressibility and waveform variability. The deep femoral vein demonstrates appropriate compressibility and waveform variability. The popliteal vein demonstrates appropriate compressibility and waveform variability. There is normal compressibility at the tibioperoneal trunk. Enlarged left inguinal lymph node measures 3.7 x 2.7 x 1.4 cm. Impression: 1. No left femoropopliteal venous thrombosis. 2. Enlarged left inguinal lymph node.
[2024-12-29] MEDS: OXYCODONE W/ ACETAMINOPHEN 5/325MG TABLET PO ONE (05:35)
[2024-12-29] MEDS: VANCOMYCIN 1GM/200ML PM 250 ML IV ONE (07:00)
[2024-12-29] MEDS ORDERED: ACETAMINOPHEN 325 MG TAB PO PRN (07:30)
[2024-12-29] MEDS: SODIUM CHLORIDE 0.9% 2,200 ML IV ONE (07:43)
--- NOTE | 2024-12-29 08:02 | DVH ---
CHEST RADIOGRAPH Indication: r/o sepsis Technique: Single frontal view of the chest was obtained Comparison: XY CHEST PORTABLE on DOS: 03/31/24, CHEST PORTABLE on DOS: 01/21/21 FINDINGS: The cardiac silhouette is enlarged. The lungs demonstrate patchy airspace opacities. The pulmonary va sculature is prominent. There is no pleural effusion.. There is no pneumothorax. IMPRESSION: 1. Cardiomegaly with pulmonary vascular congestion and bilateral patchy airspace opacities.
[2024-12-29] MEDS ORDERED: VANCOMYCIN PER PHARMACY 0 MG IV SCH (09:30)
[2024-12-29] MEDS ORDERED: hydrALAZINE HCL 20 MG/ML VL IV PRN (09:45)
--- NOTE | 2024-12-29 09:49 | DVHHP2 ---
History of Present Illness Reason for Visit: Lower extremity edema History of Present Illness This 54-year-old male with past medical history of CHF, hypertension, chronic low back pain, tobacco use, marijuana and heroin abuse, presents in the ED via EMS with a chief complaint of left lower extremity swelling. The patient rep orts left lower extremity edema started three days ago, and has progressed for the past few days. Patient states left lower extremity oozing clear liquid fluid for which prompted him to visit the emergency department. The patient states currently do not have cardiology that manages his congestive heart failure. He denies taking heart failure medication. Denies chest pain, palpitations, shortness of breath, dyspnea, or other acute symptoms. Past Medical History As stated in HPI Past Surgical History Denies Family History Reviewed, non-contributory to the management of this case. Past Social History Admits to tobacco use Denies current use of worse amphetamine and heroin Review of Systems Constitutional: Yes: Malaise; No: Fever, Chills, Sweats, Weakness, Other Eyes: No: Pain, Vision change, Conjunctivae inflammation, Eyelid inflammation, Other, Redness ENT: No: Ear pain, Ear discharge, Nose pain, Nose discharge, Nose congestion, Mouth pain, Mouth swelling, Throat pain, Throat swelling, Other Respiratory: No: Cough, Dry, Shortness of breath, SOB with excertion, Wheezing, Hemoptysis, Pleuritic Pain, Sputum, Wheezing, Other Cardiovascular: Other (Bilateral lower extremity); No: Chest Pain, Palpitations, Orthopnea, Paroxysmal Noc. Dyspnea, Edema, Lt Headedness Gastrointestinal: No: Nausea, Vomiting, Abdominal Pain, Diarrhea, Constipation, Melena, Hematochezia, Other Genitourinary: No Dysuria, No Frequency, No Incontinence, No Hematuria, No Retention, No Other Musculoskeletal: No: other, neck pain, shoulder pain, arm pain, back pain, hand pain, leg pain, foot pain Skin: Other (Left lower extremity edema with open sores) Neurological: No: Weakness, Numbness, Incoordination, Change in speech, Confusion, Seizures, Other Allergies: Coded Allergies: Amoxicillin (Verified Allergy, Unknown, 01/21/21) Penicillins (Verified Allergy, Unknown, 01/21/21) Medications Current Medications Medications Dose Ordered Sig/Kiana Route Start Time Stop Time Status Last Admin Dose Admin Acetaminophen/ Hydrocodone Bitart 1 tab Q4HP PRN PO 12/29/24 07:30 Ondansetron HCl 4 mg Q4HP PRN IV 12/29/24 07:30 Enoxaparin Sodium 40 mg DAILY SC 12/29/24 10:00 Acetaminophen 650 mg Q6HP PRN PO 12/29/24 07:30 Morphine Sulfate 2 mg Q4HPRN PRN IV 12/29/24 07:30 Exam Vital Signs Vital Signs Date Time Temp Pulse Resp B/P (MAP) Pulse Ox O2 Delivery O2 Flow Rate FiO2 12/29/24 08:00 101 12/29/24 07:30 17 96 Room Air* 0 21 12/29/24 07:30 99.3 159/95 (116) 99.3 General Appearance: Alert, Oriented X3, Cooperative, mild distress HEENT: Atraumatic, PERRLA, EOMI Respiratory: Other (Diminished lung sounds) Cardiovascular: Regular rate, Normal S1, Normal S2, Other (Bilateral lower extremity +4 non-pitting edema, left lower extremity six oozing clear liquid fluid) Abdominal: Normal bowel sounds, Soft Extremities: Other (Bilateral lower extremity edema) Neuro: Normal speech, Strength at 5/5 X4 ext, Normal tone Psych/Mental Status: Mental status NL Labs/Xrays Labs Test 12/29/24 07:01 12/29/24 03:40 Range/Units Lactic Acid Level 1.0 0.4-2.0 mmol/L White Blood Count 17.4 H 4.4-10.8 10^3/uL Red Blood Count 3.89 L 4.5-5.90 10^6/uL Hemoglobin 11.7 L 13.5-17.5 g/dL Hematocrit 34.8 L 41.0-53.0 % Mean Corpuscular Volume 89.6 80.0-100.0 fL Mean Corpuscular Hemoglobin 30.1 28.0-32.0 pg Mean Corpuscular Hemoglobin Concent 33.6 32.0-36.0 g/dL Red Cell Distribution Width 14.3 11.8-14.3 % Platelet Count 402 140-450 10^3/uL Mean Platelet Volume 7.4 6.9-10.8 fL Neutrophils (%) (Auto) 79.7 37.0-80.0 % Lymphocytes (%) (Auto) 11.8 10.0-50.0 % Monocytes (%) (Auto) 7.1 0.0-12.0 % Eosinophils (%) (Auto) 0.5 0.0-7.0 % Basophils (%) (Auto) 0.9 0.0-2.0 % Neutrophils # (Auto) 13.8 H 1.6-8.6 10 ^3/uL Lymphocytes # (Auto) 2.1 0.4-5.4 10 ^3/uL Monocytes # (Auto) 1.2 0-1.3 10 ^3/uL Eosinophils # (Auto) 0.1 0-0.8 10 ^3/uL Basophils # (Auto) 0.2 0-0.2 10 ^3/uL Nucleated Red Blood Cells 0.1 % Sodium Level 134 L 136-145 mmol/L Potassium Level 3.9 3.5-5.1 mmol/L Chloride Level 99 98-107 mmol/L Carbon Dioxide Level 24 20-31 mmol/L Anion Gap 11 5-15 Blood Urea Nitrogen 8 L 9-23 mg/dL Creatinine 0.62 L 0.700-1.30 mg/dL Glomerular Filtration Rate Calc 114 >90 mL/min BUN/Creatinine Ratio 12.9 10.0-20.0 Serum Glucose 120 H 74-106 mg/dL Calcium Level 9.2 8.7-10.4 mg/dL Total Bilirubin 0.2 0.2-1.0 mg/dL Aspartate Amino Transferase (AST) 23 13-40 U/L Alanine Aminotransferase (ALT) 21 7-40 U/L Alkaline Phosphatase 54 46-116 U/L Total Protein 7.3 5.7-8.2 g/dL Albumin 4.0 3.2-4.8 g/dL PROCEDURE(s): CXRP - CHEST PORTABLE REASON: r/o sepsis ORDER NUMBER(s): [id number], ACCESSION NUMBER(s): [id number] CHEST RADIOGRAPH Indication: r/o sepsis Technique: Single frontal view of the chest was obtained Comparison: XY CHEST PORTABLE on DOS: 03/31/24, CHEST PORTABLE on DOS: 01/21/21 FINDINGS: The cardiac silhouette is enlarged. The lungs demonstrate patchy airspace opacities. The pulmonary vasculature is prominent. There is no pleural effusion.. There is no pneumothorax. IMPRESSION: 1. Cardiomegaly with pulmonary vascular congestion and bilateral patchy airspace opacities. Assessment/Plan Assessment/Plan # leukocytosis, rule out sepsis # left lower extremity cellulitis # Left lower extremity DVT, ruled out # possible pneumonia Admit to telemetry unit Empiric antibiotic vancomycin IVF bolus Pancultures Wound consult # bilateral lower extremity edema # possible worsening CHF # cardiomegaly-pulmonary vascular congestion # hypertension Diuretics, Acei, and Toprol Hydralazine as needed Echocardiogram Cardiology consult Daily weight, strict intake and output # chronic low back pain Oxycodone # tobacco use # ex-methamphetamine and heroin use Nicotine patch Smoking cessation counseled Check for UDS DVT prophylaxis Medical plan discussed with patient and RN Plan discussed with: Patient My Orders Orders - FAUSTINA BUENROSTRO Procedure Category Date Status Time Urinalysis LAB 12/29/24 Logged 07:25 Urine Bacterial JESSY 12/29/24 Logged Culture 07:25 Chest Portable XY 12/29/24 Resulted 07:25 Admit ADMIT 12/29/24 Transmitted 07:25 Code Status CODE 12/29/24 Transmitted 07:25 Hydrocodone-Acet PHA 12/29/24 In Process 5/325mg Tab ([place] 07:30 Ondansetron Hcl PHA 12/29/24 In Process (Zofran) 07:30 Enoxaparin Sodium PHA 12/29/24 In Process (Lovenox) 10:00 Fall Risk Precautions PASCALE 12/29/[address] 07:25 Complete Blood Count LAB 12/30/24 Verified 04:00 Comprehensive LAB 12/30/24 Verified Metabolic Panel 04:00 Cardiac DIET 12/29/24 Transmitted Diet-2gna,Lofat,Lochol Breakfast Condition: Fair PASCALE 12/29/24 In Process 07:25 Acetaminophen Tablet PHA 12/29/24 In Process (Tylenol Tablet) 07:30 Morphine Sulfate PHA 12/29/24 In Process Injection 07:30 Communication Order ORDERS 12/29/24 Transmitted 07:25 Date of Service: Dec 29, 2024 Billing Provider: FAUSTINA BUENROSTRO Common Visit Codes: [id number] INP/OBS CARE (HIGH) FAUSTINA BUENROSTROP Dec 29, 2024 09:49
[2024-12-29 10:06] LABS: Triglycerides 91 mg/dL (< 150)
[2024-12-29 10:07] LABS: LDL Cholesterol 79 mg/dL (< 100)
[2024-12-29 10:08] LABS: Cholesterol 120 mg/dL (< 200)
[2024-12-29 10:09] LABS: HDL Cholesterol 27 mg/dL (40-59)
[2024-12-29] MEDS: FUROSEMIDE 40 MG/4 ML VIAL IV SCH (11:10)
[2024-12-29] MEDS: LISINOPRIL 5 MG TAB PO SCH (11:11)
[2024-12-29] MEDS: MORPHINE SULFATE INJ 2 MG/ml SYRG IV PRN (11:11)
[2024-12-29] MEDS: METOPROLOL SUCCINATE XL 50 MG TAB PO SCH (11:11)
[2024-12-29] MEDS: ENOXAPARIN SOD 40 MG/0.4 ML SYRINGE SC SCH (11:12)
[2024-12-29] MEDS: NICOTINE 14 MG/24HR TOPICAL PATCH TD SCH (11:12)
[2024-12-29] MEDS: OXYCODONE W/ ACETAMINOPHEN 5/325MG TABLET PO SCH (12:13)
[2024-12-29 12:35] LABS: Urine Bacteria None Seen /hpf (None Seen)
[2024-12-29 12:42] LABS: Urine Blood Negative /uL (Negative); Urine Clarity Clear (Clear); Urine Protein, UAD Negative (Negative); Urine Specific Gravity 1.005 (1.001-1.035); Urine Squamous Epithelial Cell None Seen /hpf (<5); Urine Urobilinogen Normal (Negative)
[2024-12-29 12:52] LABS: Urine Color Light-Yellow (Yellow)
[2024-12-29 13:08] LABS: Amphetamine Screen, Urine Neg (NEGATIVE)
[2024-12-29 13:11] LABS: Barbiturate Scree,Urine Neg (NEGATIVE); Benzodiazephine Screen, Urine Neg (NEGATIVE); Cannabinoid Screen, Urine Neg (NEGATIVE); Cocaine Screen, Urine Neg (NEGATIVE); Opiate Scree,Urine Neg (NEGATIVE); Phencyclidine Screen, Urine Neg (NEGATIVE)
--- NOTE | 2024-12-29 15:00 | DVHSR ---
APPROVED REPORT EXAM: Two-dimensional and M-mode echocardiogram with Doppler and color Doppler. Blood Pressure: 159/95 mmHg INDICATION CHF RISK FACTORS Height: 5' 10", Weight: 170 DIMENSIONS LVDd4.9 (3.8-5.7cm)LA (2D)4.2 (1.9-4.0cm)Aortic Root3.6 (2.0-3.7cm) LVDs3.5 (2.5-4.0cm)LA (MM) (1.9-4.0cm)Aortic Cusp Exc2.2 (1.5-2.0cm) EF (%) 57.0 (55-70%)Rt. Atrium5.0 (1.9-4.0cm)Asc. Aorta cm IVSd1.2 (0.7-1.1cm)RV (D) (1.8-2.4cm) PWd1.2 (0.7-1.1cm) Mitral Valve MitralMitral Stenosis E wave1.10m/sMV Mean GR.mmHg A wave1.50m/sMV Peak GR.mmHg E/A ratio0.72D MVAcm2 Aortic Valve Aortic ValveAortic Stenosis V11.00m/Misha Mean GR.5mmHg V21.40m/Misha Peak GR.8mmHg LVOT Diameter2.8 (1.8-2.4cm)Doppler AVA4.40cm2 Pulmonic Valve V20.80m/s Tricuspid Valve TR Velocity2.80m/s [id number] Conclusion Sinus rhythm. Concentric LVH with biatrial enlargement. Valves appear to be structurally normal. Left ventricular function is preserved at 60% with normal RV function. Mild TR. No pericardial effusion masses or vegetations.
--- NOTE | 2024-12-29 16:26 | DVHINCON2 ---
Date Seen: Dec 29, 2024 Referring Physician Traci Reason for Consultation CHF History of Present Illness 54-year-old male with PMH for HFpEF, cardiomyopathy with improved EF, HTN, tobacco use, heroin and methamphetamine abuse, presents to the hospital with left lower extremity edema and redness. Patient states that he has been noncompliant with his medications for approximately 2-3 weeks. Patient started to notice increased lower extremity edema worse on the left side that progress with pain and redness. Denies any chest pain. Does endorse some shortness of breath with exertion. Patient has history of amphetamine abuse for which she states still occasionally uses with last being within the last couple of weeks. UDS negative for amphetamines. CXR showing cardiomegaly with pulmonary vascular congestion bilateral patchy airspace opacities. Left lower extremity ultrasound negative for DVT. BNP 44. Past Medical History As stated above Past Surgical History Denies previous cardiac surgeries Family History: Hypertension G8 FATHER Ischemic heart disease G8 FATHER, Onset:41 Family History Denies pertinent family cardiac history Social History Occasional alcohol and tobacco use, continued occasional polysubstance abuse including marijuana and amphetamines. Allergies: Coded Allergies: Amoxicillin (Verified Allergy, Unknown, 01/21/21) Penicillins (Verified Allergy, Unknown, 01/21/21) Home Meds Active Scripts Sulfamethoxazole W/Trimethopri (Bactrim Ds Tablet) 1 Tab Tb, 1 TAB PO BID for 10 Days, #20 TAB Prov:SANJAY GRIER PAC 11/23/23 Acetaminophen W/ Codeine (Tylenol W/Cod #3) 1 Tab Tb, 1 TAB PO Q6HP PRN, #15 TAB Prov:SANJAY GRIER PAC 11/23/23 Ibuprofen Micronized (Ibuprofen) 800 Mg Tab, 800 MG PO Q8HP PRN, #30 TAB Prov:SANJAY GRIER PAC 11/23/23 Reported Medications Oxycodone W/ Acetaminophen (Percocet 5/325MG) 1 Tab Tb, 2 TAB PO QID for pain, TAB 04/01/24 Nicotine (Nicotine Transdermal Syst) 14 Mg/24 Hr Dis, 14 MG TD DAILY, DIS 04/01/24 Current Medications Current Medications Medications (Trade) Dose Ordered Sig/Kiana Route PRN Reason Start Time Stop Time Status Last Admin Acetaminophen/ Hydrocodone Bitart ([place] 5/325MG Tab) 1 tab Q4HP PRN PO MODERATE PAIN (4-6 PAIN SCALE) 12/29/24 07:30 Ondansetron HCl (Zofran) 4 mg Q4HP PRN IV NAUSEA / VOMITING 12/29/24 07:30 Enoxaparin Sodium (Lovenox) 40 mg DAILY SC 12/29/24 10:00 12/29/24 11:12 Acetaminophen (Tylenol Tablet) 650 mg Q6HP PRN PO PAIN SCALE 1-3 OR TEMP>100.4 12/29/24 07:30 Morphine Sulfate 2 mg Q4HPRN PRN IV SEVERE PAIN (7-10 PAIN SCALE) 12/29/24 07:30 12/29/24 11:11 Oxycodone/ Acetaminophen (Percocet 5/ 325MG Tablet) 2 tab QID PO 12/29/24 12:00 12/29/24 12:13 Nicotine (Nicoderm 14MG/ 24HR) 1 patch DAILY TD 12/29/24 10:00 12/29/24 11:12 Vancomycin HCl 0 ml @ 0 mls/hr UD IV 12/29/24 09:30 Furosemide (Lasix Injection) 40 mg DAILY IV 12/29/24 10:00 12/29/24 11:10 Lisinopril (Zestril Tablet) 10 mg DAILY PO 12/29/24 10:00 12/29/24 11:11 Metoprolol Succinate (Toprol Xl) 25 mg DAILY PO 12/29/24 10:00 12/29/24 11:11 Hydralazine HCl (Apresoline Injection) 10 mg Q6HP PRN IV SBP>150 12/29/24 09:45 Vancomycin HCl 250 ml @ 200 mls/hr Q12H IV 12/29/24 15:00 Review of Systems Constitutional: No: Fever, Chills, Sweats, Weakness, Malaise, Other Eyes: No: Pain, Vision change, Conjunctivae inflammation, Eyelid inflammation, Other, Redness ENT: No: Ear pain, Ear discharge, Nose pain, Nose discharge, Nose congestion, Mouth pain, Mouth swelling, Throat pain, Throat swelling, Other Respiratory: No: Cough, Dry,, Wheezing, Hemoptysis, Pleuritic Pain, Sputum, Wheezing, Other positive: Shortness of breath, SOB with exertion Cardiovascular: ; No: Chest Pain Palpitations, Orthopnea, Paroxysmal Noc. Dyspnea, Lt Headedness, Other positive: Edema, Gastrointestinal: No: Nausea, Vomiting, Abdominal Pain, Diarrhea, Constipation, Melena, Hematochezia, Other Genitourinary: No Dysuria, No Frequency, No Incontinence, No Hematuria, No Retention, No Other Musculoskeletal: neck pain; No: other, shoulder pain, arm pain, back pain, hand pain, leg pain, foot pain Skin: No: Rash, Lesions, Jaundice, Bruising, Other Neurological: Other (Dizziness, headache.); No: Weakness, Numbness, Incoordination, Change in speech, Confusion, Seizures Vital Signs Vital Signs Date Time Temp Pulse Resp B/P (MAP) Pulse Ox O2 Delivery O2 Flow Rate FiO2 12/29/24 12:55 98.9 90 17 147/90 (109) 97 98.9 12/29/24 10:21 Room Air* 0 21 Physical Exam General appearance: Patient is well-developed, well-nourished, in no acute distress. HEENT: Exam shows: Normocephalic, atraumatic, PERRLA, EOMI Neck: Supple, no bruits Chest: Equal chest excursion bilaterally. Breath sounds normal-no rales or wheezes. Heart: Rhythm: Regular rate; no murmur or gallop Abdomen: Exam shows: Soft, nontender, nondistended Musculoskeletal: No clubbing, no cyanosis, + lower extremity edema Dermatology: Lower extremity cellulitis Neurological: Exam shows: Alert and oriented x4, normal speech Available prior records, labs, EKG, rhythm strips reviewed and interpreted Labs/Diagnostic Data Labs Test 12/29/24 12:20 12/29/24 07:01 12/29/24 03:40 Range/Units Urine Color Light-yellow Yellow Urine Clarity Clear Clear Urine pH 7.0 5.0-9.0 Urine Specific [place] 1.005 1.001-1.035 Urine Protein Negative Negative Urine Ketones Negative Negative Urine Blood Negative Negative /uL Urine Nitrite Negative Negative Urine Bilirubin Negative Negative Urine Urobilinogen Normal Negative mg/dL Urine Leukocyte Esterase Negative Negative /uL Urine RBC 1 0 - 3 /hpf Urine Microscopic WBC 0-3 /HPF Urine Squamous Epithelial Cells None seen <5 /hpf Urine Bacteria None seen None Seen /hpf Urine Glucose Normal Normal mg/dL Urine Opiates Screen Neg NEGATIVE Urine Fentanyl Screen Pos NEGATIVE Urine Barbiturates Screen Neg NEGATIVE Urine Phencyclidine Screen Neg NEGATIVE Urine Amphetamines Screen Neg NEGATIVE Urine Benzodiazepines Screen Neg NEGATIVE Urine Cocaine Screen Neg NEGATIVE Urine Cannabinoids Screen Neg NEGATIVE Lactic Acid Level 1.0 0.4-2.0 mmol/L White Blood Count 17.4 H 4.4-10.8 10^3/uL Red Blood Count 3.89 L 4.5-5.90 10^6/uL Hemoglobin 11.7 L 13.5-17.5 g/dL Hematocrit 34.8 L 41.0-53.0 % Mean Corpuscular Volume 89.6 80.0-100.0 fL Mean Corpuscular Hemoglobin 30.1 28.0-32.0 pg Mean Corpuscular Hemoglobin Concent 33.6 32.0-36.0 g/dL Red Cell Distribution Width 14.3 11.8-14.3 % Platelet Count 402 140-450 10^3/uL Mean Platelet Volume 7.4 6.9-10.8 fL Neutrophils (%) (Auto) 79.7 37.0-80.0 % Lymphocytes (%) (Auto) 11.8 10.0-50.0 % Monocytes (%) (Auto) 7.1 0.0-12.0 % Eosinophils (%) (Auto) 0.5 0.0-7.0 % Basophils (%) (Auto) 0.9 0.0-2.0 % Neutrophils # (Auto) 13.8 H 1.6-8.6 10 ^3/uL Lymphocytes # (Auto) 2.1 0.4-5.4 10 ^3/uL Monocytes # (Auto) 1.2 0-1.3 10 ^3/uL Eosinophils # (Auto) 0.1 0-0.8 10 ^3/uL Basophils # (Auto) 0.2 0-0.2 10 ^3/uL Nucleated Red Blood Cells 0.1 % Sodium Level 134 L 136-145 mmol/L Potassium Level 3.9 3.5-5.1 mmol/L Chloride Level 99 98-107 mmol/L Carbon Dioxide Level 24 20-31 mmol/L Anion Gap 11 5-15 Blood Urea Nitrogen 8 L 9-23 mg/dL Creatinine 0.62 L 0.700-1.30 mg/dL Glomerular Filtration Rate Calc 114 >90 mL/min BUN/Creatinine Ratio 12.9 10.0-20.0 Serum Glucose 120 H 74-106 mg/dL Hemoglobin A1c 5.6 <5.7 % A1C Calcium Level 9.2 8.7-10.4 mg/dL Total Bilirubin 0.2 0.2-1.0 mg/dL Aspartate Amino Transferase (AST) 23 13-40 U/L Alanine Aminotransferase (ALT) 21 7-40 U/L Alkaline Phosphatase 54 46-116 U/L B-Type Natriuretic Peptide 44.29 0-100 pg/mL Total Protein 7.3 5.7-8.2 g/dL Albumin 4.0 3.2-4.8 g/dL Triglycerides Level 91 < 150 mg/dL Cholesterol Level 120 < 200 mg/dL LDL Cholesterol 79 < 100 mg/dL HDL Cholesterol 27 L 40-59 mg/dL Assessment * Acute on chronic HFpEF - continue diuresis with Lasix. Monitor strict I&Os. Normal EF on echo. * Lower extremity cellulitis - on IV antibiotics. Ultrasound negative for DVT. * HTN -metoprolol increased to 50 mg p.o. daily. I am and lisinopril. Continue trending. * Polysubstance abuse - strongly advised against * Medication noncompliance - advised medication compliance Case Discussed with Dr Mata. Continue diuresis with Lasix. Normal EF on echo. Troponins trending negative. Advised medication compliance. No further cardiac workup needed at this time, we will sign off. Please call with any questions or concerns. Critical care, time spent: 40 minutes This medical document was created using an electronic medical record system with voice recognition software and computerized dictation system. Although this document has been carefully reviewed, there might still be some phonetic and typographical errors. Occasional wrong-word or ``sound-alike substitutions may have occurred due to the inherent limitations of voice recognition software. These areas are purely typographical due to imperfections of the software programs and do not reflect any compromise in the patient's medical care. Please read the chart carefully and recognize, using context, where these substitutions have occurred. Thank you for allowing me to participate in the management of this patient. The treatment plan was discussed with and agreed upon by patient/family including requesting consultants and ordering of imaging/procedures. Plan discussed with: Patient NYHA Physical activity limitations: Class3(Marked) ordinary Date of Service: Dec 29, 2024 Billing Provider: [facility] Cardiology Common Codes: [id number] INP/OBS CARE (High), [id number] CARE 30-74 MIN GINA [facility] Dec 29, 2024 16:25
[2024-12-29] MEDS: VANCOMYCIN 1.25GM/250ML 250 ML IV SCH (18:38)
[2024-12-29] MEDS: ONDANSETRON HCL 4 MG/2 ML VIAL IV PRN (20:51)
[2024-12-30] VITALS (7 sets, daily range): BP systolic 100–139; BP diastolic 62–85; PULSE 67–107; RESP 18–20; TEMP 98–98.7; O2SAT 92–98
--- NOTE | 2024-12-30 06:56 | DVH ---
EXAM: XR Chest, 1 View CLINICAL INDICATION: chf exacerbation TECHNIQUE: Frontal view of the chest. COMPARISON: XY CHEST PORTABLE on DOS: 12/29/24, XY CHEST PORTABLE on DOS: 03/31/24, CHEST PORTABLE on D OS: 01/21/21 FINDINGS: LUNGS AND PLEURAL SPACES: Unremarkable. No consolidation. No pneumothorax. HEART: Unremarkable. No cardiomegaly. MEDIASTINUM: Unremarkable. Normal mediastinal contour. BONES/JOINTS: Unremarkable. No acute fracture. OTHER FINDINGS: . None. IMPRESSION: No acute cardiopulmonary process.
[2024-12-30 07:10] LABS: Basophils # (auto) 0.1 10 ^3/uL (0-0.2); Eosinophils # (auto) 0.3 10 ^3/uL (0-0.8); Eosinophils % (auto) 2.1 % (0.0-7.0); Hemoglobin 12.1 g/dL (13.5-17.5)
[2024-12-30 07:12] LABS: Basophils % (auto) 0.6 % (0.0-2.0); Hematocrit 36.2 % (41.0-53.0); Lymphocytes % (auto) 14.4 % (10.0-50.0); Mean Corpuscular Hemoglobin 29.5 pg (28.0-32.0); Mean Corpuscular Hgb Conc. 33.4 g/dL (32.0-36.0); Mean Corpuscular Volume 88.5 fL (80.0-100.0); Monocytes # (auto) 1.2 10 ^3/uL (0-1.3); Monocytes % (auto) 8.9 % (0.0-12.0); Neutrophils # (auto) 10.2 10 ^3/uL (1.6-8.6); Platelet Count (auto) 509 10^3/uL (140-450); Red Blood Cells 4.09 10^6/uL (4.5-5.90); Red Cell Distribution Width 14.3 % (11.8-14.3); White Blood Cell 13.8 10^3/uL (4.4-10.8)
[2024-12-30 07:18] LABS: Alanine Aminotransferase 18 U/L (7-40); Albumin 3.9 g/dL (3.2-4.8); Alkaline Phosphatase 50 U/L (46-116); Anion Gap 9 (5-15); Aspartate Aminotransferase 15 U/L (13-40); BUN/Creatinine Ratio 16.7 (10.0-20.0); Bilirubin, Total 0.4 mg/dL (0.2-1.0); Blood Urea Nitrogen 11 mg/dL (9-23); Calcium 9.4 mg/dL (8.7-10.4); Carbon Dioxide 26 mmol/L (20-31); Chloride 100 mmol/L (98-107); Glucose 92 mg/dL (74-106); Potassium 4.4 mmol/L (3.5-5.1); Total Protein 7.4 g/dL (5.7-8.2)
[2024-12-30 07:21] LABS: Sodium 135 mmol/L (136-145)
[2024-12-30] MEDS: cefTRIAXone 1GM/50ML D5W 50 ML IV ONE (10:35)
[2024-12-30] MEDS: METOPROLOL SUCCINATE XL 50 MG TAB PO SCH (10:43)
--- NOTE | 2024-12-30 14:32 | DVHPNRES ---
Progress Note Date Seen: Dec 30, 2024 Resident Creating Document: YOON BORREGO RESIDENT Medical Necessity Reason Pt with a Central, PICC or Fol: No Subjective Review of Systems This is a 54-year-old male with past medical history of CHF, hypertension, chronic low back pain, nicotine dependence, polysubstance abuse disorder presented to the ED with a chief complaint of the left lower extremity swelling and discharge since 4 days prior to this admission. patient stated that left lower leg swelling started 4 days ago getting worse and also noticing some pustular discharge from of the left lower leg prompted this visit. the patient denies, chills, fever, flu-like symptoms, chest pain, shortness of breath, any sick contact, or any change in the bowel and bladder. Patient was seen and examined on the bedside. He is alert oriented x3 and on room air. Patient mentioned pain and improved swelling of the left lower leg. No other active complaint. Constitutional: No: Fever, Chills, Sweats, Weakness, Malaise, Other Eyes: No: Pain, Vision change, Conjunctivae inflammation, Eyelid inflammation, Other, Redness ENT: No: Ear pain, Ear discharge, Nose pain, Nose discharge, Nose congestion, Mouth pain, Mouth swelling, Throat pain, Throat swelling, Other Respiratory: Shortness of breath, improving No: Cough, Dry,Wheezing, Hemoptysis, Pleuritic Pain, Sputum, Wheezing, Other Cardiovascular: No: Chest Pain, Palpitations, Orthopnea, Paroxysmal Noc. Dyspnea, Edema, Lt Headedness, Other Gastrointestinal: No: Nausea, Vomiting, Abdominal Pain, Diarrhea, Constipation, Melena, Hematochezia, Other Musculoskeletal: Leg pain, No: other, neck pain, shoulder pain, arm pain, back pain, hand pain, leg pain, foot pain Neurological:; No: Weakness, Numbness, Incoordination, Change in speech, Confusion, Seizures Objective vital signs Vital Sign Date Time Temp Pulse Resp B/P (MAP) Pulse Ox O2 Delivery O2 Flow Rate FiO2 12/30/24 13:23 76 18 103/72 12/30/24 13:15 98.1 92 98.1 12/30/24 08:00 Room Air* 0 21 Total Intake and Output 12/29/24 12/29/24 12/30/24 15:00 23:00 07:00 Intake Total 2450 ml 400 ml 1250 ml Output Total 500 ml Balance 2450 ml -100 ml 1250 ml medications Current Medications Medications Dose Ordered Sig/Kiana Route Start Time Stop Time Status Last Admin Dose Admin Acetaminophen/ Hydrocodone Bitart 1 tab Q4HP PRN PO 12/29/24 07:30 Ondansetron HCl 4 mg Q4HP PRN IV 12/29/24 07:30 12/30/24 13:22 4 MG Enoxaparin Sodium 40 mg DAILY SC 12/29/24 10:00 12/30/24 07:58 40 MG Acetaminophen 650 mg Q6HP PRN PO 12/29/24 07:30 Morphine Sulfate 2 mg Q4HPRN PRN IV 12/29/24 07:30 12/30/24 13:23 2 MG Oxycodone/ Acetaminophen 2 tab QID PO 12/29/24 12:00 12/30/24 12:15 2 TAB Nicotine 1 patch DAILY TD 12/29/24 10:00 12/30/24 10:30 1 PATCH Vancomycin HCl 0 ml @ 0 mls/hr UD IV 12/29/24 09:30 Furosemide 40 mg DAILY IV 12/29/24 10:00 12/30/24 10:34 40 MG Lisinopril 10 mg DAILY PO 12/29/24 10:00 12/30/24 10:29 10 MG Hydralazine HCl 10 mg Q6HP PRN IV 12/29/24 09:45 Vancomycin HCl 250 ml @ 200 mls/hr Q12H IV 12/29/24 15:00 12/30/24 02:45 200 MLS/HR Metoprolol Succinate 50 mg DAILY PO 12/30/24 10:00 12/30/24 10:43 50 MG Ceftriaxone Sodium 50 ml @ 100 mls/hr DAILY@09 IV 12/31/24 09:00 Examination Physical examination: General Appearance: Alert, Oriented X3, Cooperative, No acute distress HEENT: Atraumatic, PERRLA, EOMI, Mucous membrane moist/pink Respiratory: Clear to auscultation, Normal air movement Cardiovascular: Regular rate, Normal S1, Normal S2, No murmurs, no chest wall tenderness Abdominal: Normal bowel sounds, Soft, No tenderness, No hepatospenomegaly, No masses Extremities: Left lower leg erythema and swelling, pustular discharge from the skin breakdown, No clubbing, No cyanosis, No edema, Normal pulses. Skin: No rashes, No breakdown, No significant lesion Neuro: Normal gait, Normal speech, Strength at 5/5 X4 ext, Normal tone, Sensation intact, Cranial nerves 3-12 NL, Reflexes 2+ Psych/Mental Status: Mental status NL, Mood NL laboratory and microbiology Laboratory Tests 12/30/24 05:44 Test 12/30/24 05:44 Range/Units Serum Glucose 92 74-106 mg/dL Microbiology Date/Time Source Procedure Growth Status 12/29/24 12:20 Voided Urine Urine Culture - Preliminary Resulted 12/29/24 07:01 Blood Blood Culture - Preliminary NO GROWTH AFTER 24 HOURS OF INCUBATION. Resulted Labs and/or images reviewed: Labs reviewed by me, Image(s) reviewed by me Problem List/Assessment/Plan Problem List/Assessment/Plan Assessment and plan: # Cellulitis of the left lower leg # SIRS due to above - Doppler scan of the left lower leg revealed no sign of DVT and enlarged left inguinal lymph node measures 3.7 x 2.7 x 1.4 cm. - pending blood culture, urine culture and MRSA screen - IV vancomycin as per pharmacy and IV ceftriaxone 1 g daily - Wound consult # Possible acute exacerbation of chronic diastolic heart failure # Hypertensive heart disease - CxR demonstrated Cardiomegaly with pulmonary vascular congestion and bilateral patchy airspace opacities. - BNP is normal - Echo on 12/29/24 showed EF 60%, mild TR, concentric LVH with biatrial enlargement - Lasix 40 mg IV daily - Cardiology on board - Metoprolol succinate 50 mg p.o. daily and lisinopril 10 mg daily # Nicotine dependence # polysubstance abuse disorder - nicotine patch 14 mg, 1 patch TID - UDS is negative - Counseled patient regarding drug abuse and rehabilitation. # DVT prophylaxis - Lovenox 40 mg sc daily Goal of care discussed with the patient for more than 20 minutes full code Plan discussed with Dr. Paulino Plan discussed with: Patient, Other My Orders My Orders Orders - YOON BORREGO RESIDENT Procedure Category Date Status Time Mrsa Screen JESSY 12/30/24 Uncollected 09:36 Ceftriaxone 1gm/50ml PHA 12/31/24 In Process D5w (Rocephin) 09:00 Mrsa Screen JESSY 12/30/24 In Process 10:40 Date of Service: Dec 30, 2024 Billing Provider: VIRA PAULINO MD Common Visit Codes: [id number] INP/OBS CARE(HIGH) YOON BORREGO RESIDENT Dec 30, 2024 14:32 VIRA PAULINO MD Dec 31, 2024 00:05
[2024-12-30] MEDS: HYDROcodone-ACET 5/325MG TAB PO PRN (16:33)
[2024-12-31] VITALS (8 sets, daily range): BP systolic 100–114; BP diastolic 60–79; PULSE 71–86; RESP 17–20; TEMP 97.6–98.3; O2SAT 94–99
[2024-12-31 08:01] LABS: Basophils # (auto) 0.1 10 ^3/uL (0-0.2); Basophils % (auto) 1.5 % (0.0-2.0); Eosinophils # (auto) 0.3 10 ^3/uL (0-0.8); Eosinophils % (auto) 2.9 % (0.0-7.0); Hematocrit 36.3 % (41.0-53.0); Hemoglobin 11.9 g/dL (13.5-17.5); Lymphocytes # (auto) 2.1 10 ^3/uL (0.4-5.4); Mean Corpuscular Hemoglobin 29.2 pg (28.0-32.0); Mean Corpuscular Hgb Conc. 32.9 g/dL (32.0-36.0); Mean Corpuscular Volume 88.9 fL (80.0-100.0); Monocytes % (auto) 9.7 % (0.0-12.0); Neutrophils # (auto) 6.4 10 ^3/uL (1.6-8.6); Neutrophils % (auto) 64.9 % (37.0-80.0); Platelet Count (auto) 483 10^3/uL (140-450); Red Blood Cells 4.08 10^6/uL (4.5-5.90); Red Cell Distribution Width 14.5 % (11.8-14.3); White Blood Cell 9.9 10^3/uL (4.4-10.8)
[2024-12-31 08:12] LABS: Anion Gap 6 (5-15); Carbon Dioxide 26 mmol/L (20-31); Chloride 102 mmol/L (98-107); Potassium 4.2 mmol/L (3.5-5.1)
[2024-12-31 08:13] LABS: Calcium 9.2 mg/dL (8.7-10.4); Sodium 134 mmol/L (136-145)
[2024-12-31 08:18] LABS: BUN/Creatinine Ratio 17.8 (10.0-20.0); Blood Urea Nitrogen 13 mg/dL (9-23); Glucose 139 mg/dL (74-106)
[2024-12-31] MEDS: cefTRIAXone 1GM/50ML D5W 50 ML IV SCH (09:25)
[2024-12-31] MEDS: FUROSEMIDE 40 MG/4 ML VIAL IV SCH (09:30)
[2024-12-31] MEDS: OXYCODONE W/ ACETAMINOPHEN 5/325MG TABLET PO PRN (10:00)
--- NOTE | 2024-12-31 10:46 | DVHPNRES ---
Progress Note Date Seen: Dec 31, 2024 Resident Creating Document: YOON BORREGO RESIDENT Medical Necessity Reason Pt with a Central, PICC or Fol: No Subjective Review of Systems Patient was seen and examined on the bedside. He is alert oriented x3 and on room air. Patient mentioned pain and improved swelling of the left lower leg. No other active complaint. Objective vital signs Vital Sign Date Time Temp Pulse Resp B/P (MAP) Pulse Ox O2 Delivery O2 Flow Rate FiO2 12/31/24 10:03 108/63 12/31/24 09:00 98.3 76 17 94 98.3 12/31/24 08:00 Room Air* 0 21 Total Intake and Output 12/30/24 12/30/24 12/31/24 15:00 23:00 07:00 Intake Total 250 ml 1000 ml 870 ml Output Total 1200 ml 1500 ml Balance 250 ml -200 ml -630 ml medications Current Medications Medications Dose Ordered Sig/Kiana Route Start Time Stop Time Status Last Admin Dose Admin Ondansetron HCl 4 mg Q4HP PRN IV 12/29/24 07:30 12/31/24 03:56 4 MG Enoxaparin Sodium 40 mg DAILY SC 12/29/24 10:00 12/31/24 09:28 40 MG Acetaminophen 650 mg Q6HP PRN PO 12/29/24 07:30 Morphine Sulfate 2 mg Q4HPRN PRN IV 12/29/24 07:30 12/31/24 03:50 2 MG Nicotine 1 patch DAILY TD 12/29/24 10:00 12/31/24 09:29 1 PATCH Vancomycin HCl 0 ml @ 0 mls/hr UD IV 12/29/24 09:30 Lisinopril 10 mg DAILY PO 12/29/24 10:00 12/30/24 10:29 10 MG Hydralazine HCl 10 mg Q6HP PRN IV 12/29/24 09:45 Vancomycin HCl 250 ml @ 200 mls/hr Q12H IV 12/29/24 15:00 12/31/24 03:33 200 MLS/HR Metoprolol Succinate 50 mg DAILY PO 12/30/24 10:00 12/30/24 10:43 50 MG Ceftriaxone Sodium 50 ml @ 100 mls/hr DAILY@09 IV 12/31/24 09:00 12/31/24 09:25 100 MLS/HR Oxycodone/ Acetaminophen 2 tab Q6HP PRN PO 12/31/24 09:30 12/31/24 10:00 2 TAB Furosemide 20 mg DAILY IV 12/31/24 09:30 12/31/24 10:03 20 MG Examination Physical examination: General Appearance: Alert, Oriented X3, Cooperative, No acute distress HEENT: Atraumatic, PERRLA, EOMI, Mucous membrane moist/pink Respiratory: Clear to auscultation, Normal air movement Cardiovascular: Regular rate, Normal S1, Normal S2, No murmurs, no chest wall tenderness Abdominal: Normal bowel sounds, Soft, No tenderness, No hepatospenomegaly, No masses Extremities: Left lower leg erythema and swelling, pustular discharge from the skin breakdown, No clubbing, No cyanosis, No edema, Normal pulses. Skin: No rashes, No breakdown, No significant lesion Neuro: Normal gait, Normal speech, Strength at 5/5 X4 ext, Normal tone, Sensation intact, Cranial nerves 3-12 NL, Reflexes 2+ Psych/Mental Status: Mental status NL, Mood NL laboratory and microbiology Laboratory Tests 12/31/24 06:58 Test 12/31/24 06:58 Range/Units Serum Glucose 139 H 74-106 mg/dL Microbiology Date/Time Source Procedure Growth Status 12/29/24 12:20 Voided Urine Urine Culture - Preliminary Resulted 12/29/24 07:01 Blood Blood Culture - Preliminary NO GROWTH AFTER 48 HOURS OF INCUBATION. Resulted Labs and/or images reviewed: Labs reviewed by me, Image(s) reviewed by me Problem List/Assessment/Plan Problem List/Assessment/Plan Assessment and plan: # Cellulitis of the left lower leg # SIRS due to above - Doppler scan of the left lower leg revealed no sign of DVT and enlarged left inguinal lymph node measures 3.7 x 2.7 x 1.4 cm. - pending blood culture, urine culture and MRSA screen - IV vancomycin as per pharmacy and IV ceftriaxone 1 g daily - Consulted podiatry # Possible acute exacerbation of chronic diastolic heart failure # Hypertensive heart disease - CxR demonstrated Cardiomegaly with pulmonary vascular congestion and bilateral patchy airspace opacities. - BNP is normal - Echo on 12/29/24 showed EF 60%, mild TR, concentric LVH with biatrial enlargement - Lasix 40 mg IV daily - Cardiology on board - Metoprolol succinate 50 mg p.o. daily and lisinopril 10 mg daily # Nicotine dependence # polysubstance abuse disorder - nicotine patch 14 mg, 1 patch TID - UDS is negative - Counseled patient regarding drug abuse and rehabilitation. # DVT prophylaxis - Lovenox 40 mg sc daily Goal of care discussed with the patient for more than 20 minutes full code Plan discussed with Dr. Weinberg Plan discussed with: Patient, Other My Orders My Orders Orders - YOON BORREGO Procedure Category Date Status Time Mrsa Screen JESSY 12/30/24 In Process 10:40 Discontinue Tele PASCALE 12/30/24 In Process 16:28 Transfer Orders XFER 12/30/24 Transmitted 16:28 Oxycodone W/ Acet PHA 12/31/24 In Process 5/325mg Tab (Percocet 09:30 Furosemide Injection PHA 12/31/24 In Process (Lasix Injection) 09:30 Date of Service: Dec 31, 2024 Billing Provider: VANESSA WEINBERG MD Common Visit Codes: [id number] INP/OBS CARE(HIGH) YOON BORREGO RESIDENT Dec 31, 2024 10:46 VANESSA WEINBERG MD Jan 01, 2025 10:27
[2025-01-01] VITALS (8 sets, daily range): BP systolic 100–128; BP diastolic 61–96; PULSE 75–83; RESP 17–18; TEMP 98.3–98.7; O2SAT 90–95
[2025-01-01 07:55] LABS: Basophils # (auto) 0.1 10 ^3/uL (0-0.2); Basophils % (auto) 1.1 % (0.0-2.0); Eosinophils # (auto) 0.4 10 ^3/uL (0-0.8); Eosinophils % (auto) 3.5 % (0.0-7.0); Hematocrit 38.5 % (41.0-53.0); Hemoglobin 12.9 g/dL (13.5-17.5); Lymphocytes # (auto) 2.2 10 ^3/uL (0.4-5.4); Lymphocytes % (auto) 21.2 % (10.0-50.0); Mean Corpuscular Hemoglobin 29.5 pg (28.0-32.0); Mean Corpuscular Hgb Conc. 33.6 g/dL (32.0-36.0); Mean Corpuscular Volume 87.8 fL (80.0-100.0); Monocytes # (auto) 0.8 10 ^3/uL (0-1.3); Monocytes % (auto) 7.6 % (0.0-12.0); Neutrophils # (auto) 6.8 10 ^3/uL (1.6-8.6); Neutrophils % (auto) 66.6 % (37.0-80.0); Nucleated Red Blood Cells % 0.2 %; Platelet Count (auto) 477 10^3/uL (140-450); Red Blood Cells 4.39 10^6/uL (4.5-5.90); Red Cell Distribution Width 14.6 % (11.8-14.3); White Blood Cell 10.2 10^3/uL (4.4-10.8)
[2025-01-01 08:01] LABS: Anion Gap 9 (5-15); Calcium 9.4 mg/dL (8.7-10.4); Carbon Dioxide 25 mmol/L (20-31); Chloride 99 mmol/L (98-107); Potassium 4.2 mmol/L (3.5-5.1)
[2025-01-01 08:02] LABS: Sodium 133 mmol/L (136-145)
[2025-01-01 08:07] LABS: BUN/Creatinine Ratio 17.9 (10.0-20.0); Blood Urea Nitrogen 14 mg/dL (9-23); Glucose 130 mg/dL (74-106)
[2025-01-01] MEDS ORDERED: IOHEXOL 300 MG/ML 100ML BOTTLE IJ ONE (12:14)
--- NOTE | 2025-01-01 15:06 | DVH ---
INDICATION: Lt lower leg cellulitis COMPARISON: CT RT LOWER EXTREMITY W CON on DOS: 04/06/24 TECHNIQUE: CT of the left lower extremity was performed with contrast. Volume transverse images were obtained and reconstructed in multiple planes using bone and soft tissue algorithms. Radiation Dose Information: CT Dose: CTDI volume is 7.75 mGy. Dose-length product is 491.22 mGy*cm FINDINGS: The alignment is normal. The joint spaces are normal. There is no fracture, dislocation or aggressive osseous lesion. There is no joint effusion. Severe diffuse subcutaneous soft-tissue edema and swelling most prominent at the dorsum of the foot a nd ankle. There is suggestion of soft-tissue ulceration at the medial calf. IMPRESSION: Findings are suggestive of cellulitis. All CT scans at this medical facility are performed using dose modulation techniques as appropriate t o a performed exam including the following: Automated exposure control was utilized; adjustment of th e MA and/or KV according to patient size; and use of iterative reconstruction technique.
--- NOTE | 2025-01-01 16:54 | DVHPNRES ---
Progress Note Date Seen: Jan 01, 2025 Resident Creating Document: YOON BORREGO RESIDENT Medical Necessity Reason Pt with a Central, PICC or Fol: No Subjective Review of Systems The patient was seen and examined on the bedside. He is alert, oriented x3. The patient is complaint of swelling of the foot and can not bear weight on this leg. CT scan of the left lower extremity with IV contrast demonstrated Severe diffuse subcutaneous soft-tissue edema and swelling most prominent at the dorsum of the foot and ankle. There is suggestion of soft-tissue ulceration at the medial calf. Awaiting for podiatric recommendation. Objective vital signs Vital Sign Date Time Temp Pulse Resp B/P (MAP) Pulse Ox O2 Delivery O2 Flow Rate FiO2 01/01/25 16:15 98.3 78 17 100/61 (74) 93 98.3 01/01/25 08:00 Room Air* 0 21 Total Intake and Output 12/31/24 12/31/24 01/01/25 15:00 23:00 07:00 Intake Total 50 ml 868 ml 1550 ml Output Total 850 ml Balance 50 ml 18 ml 1550 ml medications Current Medications Medications Dose Ordered Sig/Kiana Route Start Time Stop Time Status Last Admin Dose Admin Ondansetron HCl 4 mg Q4HP PRN IV 12/29/24 07:30 01/01/25 12:32 4 MG Enoxaparin Sodium 40 mg DAILY SC 12/29/24 10:00 01/01/25 08:57 40 MG Acetaminophen 650 mg Q6HP PRN PO 12/29/24 07:30 Morphine Sulfate 2 mg Q4HPRN PRN IV 12/29/24 07:30 01/01/25 12:33 2 MG Nicotine 1 patch DAILY TD 12/29/24 10:00 01/01/25 08:57 1 PATCH Vancomycin HCl 0 ml @ 0 mls/hr UD IV 12/29/24 09:30 Lisinopril 10 mg DAILY PO 12/29/24 10:00 01/01/25 08:59 10 MG Hydralazine HCl 10 mg Q6HP PRN IV 12/29/24 09:45 Vancomycin HCl 250 ml @ 200 mls/hr Q12H IV 12/29/24 15:00 01/01/25 15:11 200 MLS/HR Metoprolol Succinate 50 mg DAILY PO 12/30/24 10:00 12/30/24 10:43 50 MG Ceftriaxone Sodium 50 ml @ 100 mls/hr DAILY@09 IV 12/31/24 09:00 01/01/25 08:51 100 MLS/HR Oxycodone/ Acetaminophen 2 tab Q6HP PRN PO 12/31/24 09:30 01/01/25 00:36 2 TAB Furosemide 20 mg DAILY IV 12/31/24 09:30 01/01/25 08:53 20 MG Examination Physical examination: General Appearance: Alert, Oriented X3, Cooperative, No acute distress HEENT: Atraumatic, PERRLA, EOMI, Mucous membrane moist/pink Respiratory: Clear to auscultation, Normal air movement Cardiovascular: Regular rate, Normal S1, Normal S2, No murmurs, no chest wall tenderness Abdominal: Normal bowel sounds, Soft, No tenderness, No hepatospenomegaly, No masses Extremities: Left lower leg erythema and swelling, pustular discharge from the skin breakdown, swelling of the Lt feet, No clubbing, No cyanosis, No edema, Normal pulses. Skin: No rashes, No breakdown, No significant lesion Neuro: Normal gait, Normal speech, Strength at 5/5 X4 ext, Normal tone, Sensation intact, Cranial nerves 3-12 NL, Reflexes 2+ Psych/Mental Status: Mental status NL, Mood NL laboratory and microbiology Laboratory Tests 01/01/25 06:36 Test 01/01/25 06:36 Range/Units Serum Glucose 130 H 74-106 mg/dL Microbiology Date/Time Source Procedure Growth Status 12/30/24 10:40 Nose MRSA Screen - Final Complete 12/29/24 12:20 Voided Urine Urine Culture - Final Complete 12/29/24 07:01 Blood Blood Culture - Preliminary NO GROWTH AFTER 72 HOURS OF INCUBATION. Resulted Labs and/or images reviewed: Labs reviewed by me, Image(s) reviewed by me Problem List/Assessment/Plan Problem List/Assessment/Plan Assessment and plan: # Cellulitis of the left lower leg # SIRS due to above - CT scan of the left lower extremity with IV contrast demonstrated severe diffuse subcutaneous soft-tissue edema and swelling most prominent at the dorsum of the foot and ankle. There is suggestion of soft-tissue ulceration at the medial calf. - Doppler scan of the left lower leg revealed no sign of DVT and enlarged left inguinal lymph node measures 3.7 x 2.7 x 1.4 cm. - Blood and culture revealed no growth in 24 hours of incubation and MRSA negative - IV vancomycin as per pharmacy and IV ceftriaxone 1 g daily - Consulted podiatry # Possible acute exacerbation of chronic diastolic heart failure # Hypertensive heart disease - CxR demonstrated Cardiomegaly with pulmonary vascular congestion and bilateral patchy airspace opacities. - BNP is normal - Echo on 12/29/24 showed EF 60%, mild TR, concentric LVH with biatrial enlargement - Lasix 40 mg IV daily - Cardiology on board - Metoprolol succinate 50 mg p.o. daily and lisinopril 10 mg daily # Nicotine dependence # polysubstance abuse disorder - nicotine patch 14 mg, 1 patch TID - UDS is negative - Counseled patient regarding drug abuse and rehabilitation. # DVT prophylaxis - Lovenox 40 mg sc daily Goal of care discussed with the patient for more than 20 minutes full code Plan discussed with Dr. Weinberg Plan discussed with: Patient, Other My Orders My Orders Orders - YOON BORREGO Procedure Category Date Status Time Lt Lower Extremity W CT 01/01/25 Resulted Contras 11:56 Dietary Evaluation Review Comments: 1. Agree with Cardiac diet as tolerated 2. Encourage continued good oral intakes >75% to meet est. needs 3. On empiric antibiotics for cellulitis, cultures pending 4. Monitor wt trends, diuretics for edema/LE swelling, hx CHF Expected Outcomes/Goals: Antibiotics for infection, maintain adequate nutrition. Date of Service: Jan 01, 2025 Billing Provider: VANESSA WEINBERG MD Common Visit Codes: [id number] INP/OBS CARE(HIGH) YOON BORREGO RESIDENT Jan 01, 2025 16:54 VANESSA WEINBERG MD Jan 01, 2025 17:30
[2025-01-02] VITALS (7 sets, daily range): BP systolic 106–132; BP diastolic 65–80; PULSE 76–88; RESP 18; TEMP 98.3–99.5; O2SAT 90–95
[2025-01-02 07:08] LABS: Basophils # (auto) 0.2 10 ^3/uL (0-0.2); Basophils % (auto) 1.9 % (0.0-2.0); Eosinophils # (auto) 0.3 10 ^3/uL (0-0.8); Eosinophils % (auto) 2.7 % (0.0-7.0); Hemoglobin 12.4 g/dL (13.5-17.5); Lymphocytes % (auto) 18.9 % (10.0-50.0); Mean Corpuscular Hemoglobin 29.2 pg (28.0-32.0); Mean Corpuscular Hgb Conc. 33.4 g/dL (32.0-36.0); Mean Corpuscular Volume 87.2 fL (80.0-100.0); Monocytes % (auto) 10.1 % (0.0-12.0); Neutrophils # (auto) 6.9 10 ^3/uL (1.6-8.6); Neutrophils % (auto) 66.4 % (37.0-80.0); Red Blood Cells 4.24 10^6/uL (4.5-5.90); Red Cell Distribution Width 14.2 % (11.8-14.3); White Blood Cell 10.4 10^3/uL (4.4-10.8)
[2025-01-02 07:09] LABS: Platelet Count (auto) 579 10^3/uL (140-450)
--- NOTE | 2025-01-02 12:07 | DVHINCON2 ---
Date Seen: Jan 02, 2025 Reason for Consultation Left lower extremity swelling and redness History of Present Illness This 54-year-old male with past medical history of CHF, hypertension, chronic low back pain, tobacco use, marijuana and heroin abuse, presents in the ED via EMS with a chief complaint of left lower extremity swelling. The patient reports left lower extremity edema started three days ago, and has progressed for the past few days. Patient states left lower extremity oozing clear liquid fluid for which prompted him to visit the emergency department. The patient states currently do not have cardiology that manages his congestive heart failure. He denies taking heart failure medication. Denies chest pain, palpitations, shortness of breath, dyspnea, or other acute symptoms. Past Medical History See H&P Past Surgical History See H&P Family History: Hypertension G8 FATHER Ischemic heart disease G8 FATHER, Onset:41 Allergies: Coded Allergies: Amoxicillin (Verified Allergy, Unknown, 01/21/21) Penicillins (Verified Allergy, Unknown, 01/21/21) Home Meds Active Scripts Sulfamethoxazole W/Trimethopri (Bactrim Ds Tablet) 1 Tab Tb, 1 TAB PO BID for 10 Days, #20 TAB Prov:SANJAY GRIER PAC 11/23/23 Acetaminophen W/ Codeine (Tylenol W/Cod #3) 1 Tab Tb, 1 TAB PO Q6HP PRN, #15 TAB Prov:SANJAY GRIER PAC 11/23/23 Ibuprofen Micronized (Ibuprofen) 800 Mg Tab, 800 MG PO Q8HP PRN, #30 TAB Prov:SANJAY GRIER PAC 11/23/23 Reported Medications Oxycodone W/ Acetaminophen (Percocet 5/325MG) 1 Tab Tb, 2 TAB PO QID for pain, TAB 04/01/24 Nicotine (Nicotine Transdermal Syst) 14 Mg/24 Hr Dis, 14 MG TD DAILY, DIS 04/01/24 Vital Signs Vital Signs Date Time Temp Pulse Resp B/P (MAP) Pulse Ox O2 Delivery O2 Flow Rate FiO2 01/02/25 10:24 80 17 124/76 01/02/25 08:25 98.3 95 98.3 01/02/25 08:00 Room Air* 0 21 Physical Exam DERMATOLOGIC EXAM: - Skin is dry and cool to the touch dry bilaterally. - Nails 1-5 of the bilateral foot are thickened, discolored, dystrophic, and tender to palpate with subungual debris - Hair loss noted to bilateral feet - left lower extremity swelling and erythema with significant tenderness around the knee minimal ability to flex and extend due to the pain VASCULAR EXAM: - DP and PT pulses are palpable bilaterally. - MICROPALEONTOLOGIST is brisk to all digits. - Feet are cool to touch compared to lower legs bilaterally. NEUROLOGIC EXAM: - Normal light touch sensation to the superficial peroneal, deep peroneal, sural, saphenous, and tibial nerve branches. - Protective sensation is diminished as tested with a 5.07 10g [place] bilaterally. MUSCULOSKELETAL EXAM: - No gross deformities - Muscle strength is 5/5 and active motion is pain-free and symmetrical bilaterally - No pain or crepitation with passive range of motion bilaterally to all major pedal joints Labs/Diagnostic Data Labs Test 01/02/25 06:24 01/02/25 02:00 01/01/25 06:36 12/30/24 05:44 Range/Units White Blood Count 10.4 4.4-10.8 10^3/uL Red Blood Count 4.24 L 4.5-5.90 10^6/uL Hemoglobin 12.4 L 13.5-17.5 g/dL Hematocrit 37.0 L 41.0-53.0 % Mean Corpuscular Volume 87.2 80.0-100.0 fL Mean Corpuscular Hemoglobin 29.2 28.0-32.0 pg Mean Corpuscular Hemoglobin Concent 33.4 32.0-36.0 g/dL Red Cell Distribution Width 14.2 11.8-14.3 % Platelet Count 579 H 140-450 10^3/uL Mean Platelet Volume 7.7 6.9-10.8 fL Neutrophils (%) (Auto) 66.4 37.0-80.0 % Lymphocytes (%) (Auto) 18.9 10.0-50.0 % Monocytes (%) (Auto) 10.1 0.0-12.0 % Eosinophils (%) (Auto) 2.7 0.0-7.0 % Basophils (%) (Auto) 1.9 0.0-2.0 % Neutrophils # (Auto) 6.9 1.6-8.6 10 ^3/uL Lymphocytes # (Auto) 2.0 0.4-5.4 10 ^3/uL Monocytes # (Auto) 1.0 0-1.3 10 ^3/uL Eosinophils # (Auto) 0.3 0-0.8 10 ^3/uL Basophils # (Auto) 0.2 0-0.2 10 ^3/uL Nucleated Red Blood Cells 0.0 % Creatinine 0.73 0.700-1.30 mg/dL Glomerular Filtration Rate Calc 109 >90 mL/min Vancomycin Level Trough 10.9 H 5-10 ug/mL Sodium Level 133 L 136-145 mmol/L Potassium Level 4.2 3.5-5.1 mmol/L Chloride Level 99 98-107 mmol/L Carbon Dioxide Level 25 20-31 mmol/L Anion Gap 9 5-15 Blood Urea Nitrogen 14 9-23 mg/dL BUN/Creatinine Ratio 17.9 10.0-20.0 Serum Glucose 130 H 74-106 mg/dL Calcium Level 9.4 8.7-10.4 mg/dL Total Bilirubin 0.4 0.2-1.0 mg/dL Aspartate Amino Transferase (AST) 15 13-40 U/L Alanine Aminotransferase (ALT) 18 7-40 U/L Alkaline Phosphatase 50 46-116 U/L B-Type Natriuretic Peptide 93.60 0-100 pg/mL Total Protein 7.4 5.7-8.2 g/dL Albumin 3.9 3.2-4.8 g/dL Test 12/29/24 12:20 12/29/24 07:01 12/29/24 03:40 Range/Units Urine Color Light-yellow Yellow Urine Clarity Clear Clear Urine pH 7.0 5.0-9.0 Urine Specific [place] 1.005 1.001-1.035 Urine Protein Negative Negative Urine Ketones Negative Negative Urine Blood Negative Negative /uL Urine Nitrite Negative Negative Urine Bilirubin Negative Negative Urine Urobilinogen Normal Negative mg/dL Urine Leukocyte Esterase Negative Negative /uL Urine RBC 1 0 - 3 /hpf Urine Microscopic WBC 0-3 /HPF Urine Squamous Epithelial Cells None seen <5 /hpf Urine Bacteria None seen None Seen /hpf Urine Glucose Normal Normal mg/dL Urine Opiates Screen Neg NEGATIVE Urine Fentanyl Screen Pos NEGATIVE Urine Barbiturates Screen Neg NEGATIVE Urine Phencyclidine Screen Neg NEGATIVE Urine Amphetamines Screen Neg NEGATIVE Urine Benzodiazepines Screen Neg NEGATIVE Urine Cocaine Screen Neg NEGATIVE Urine Cannabinoids Screen Neg NEGATIVE Lactic Acid Level 1.0 0.4-2.0 mmol/L Hemoglobin A1c 5.6 <5.7 % A1C Triglycerides Level 91 < 150 mg/dL Cholesterol Level 120 < 200 mg/dL LDL Cholesterol 79 < 100 mg/dL HDL Cholesterol 27 L 40-59 mg/dL Microbiology Date/Time Source Procedure Growth Status 12/30/24 10:40 Nose MRSA Screen - Final Complete 12/29/24 12:20 Voided Urine Urine Culture - Final Complete 12/29/24 07:01 Blood Blood Culture - Preliminary NO GROWTH AFTER 72 HOURS OF INCUBATION. Resulted Problems(with codes): (1) Atypical chest pain (2) Open wound of right lower leg (3) Pain and swelling of right lower leg (4) Knee sprain (5) Dog bite (6) Scrotal laceration (7) Cellulitis of right lower leg (8) Leukocytosis (9) Cellulitis of left lower leg Plan/Recommendation ASSESSMENT: Patient is a 54-year-old seen on the floor for left leg cellulitis PLAN: - The patients chart was reviewed, clinical findings were discussed with the patient, the etiologies of the conditions were discussed in detail, and a treatment plan was agreed to at this time, with both oral and written instructions provided. - reviewed advanced imaging - discussed that there does not appear to be any wounds on the foot that could be resulting in the cellulitis - there is concern about the left knee being swollen and limited range of motion due to the pain - order placed for MRI with contrast to rule out deeper infection in the knee - if MRI is concerning recommend consult ortho - if not just continue to treat for cellulitis All questions were answered and concerns addressed to the patient's satisfaction. The patient was given the phone number to the clinic and was told how to make contact with the clinic should any concerns or questions arise. Patient understands that if any questions or concerns arise prior to the next appointment, we should be contacted immediately. FOLLOW-UP: Continue to follow while inpatient Plan discussed with: Patient Date of Service: Jan 02, 2025 Billing Provider: FANG AYERS DPM Common Visit Codes: CONSULT ONLY Consultation Codes: [id number] CONSULT <80MIN FANG AYERS DPM Jan 02, 2025 12:07
[2025-01-02] MEDS ORDERED: METO25TA93 PO (17:03)
[2025-01-02] MEDS ORDERED: LISI2.5T47 PO (17:03)
[2025-01-02] MEDS ORDERED: FURO1TAB33 PO (17:03)
[2025-01-02] MEDS ORDERED: AUG875T PO (17:03)
[2025-01-02] MEDS ORDERED: DOXY1CAP57 PO (17:03)
--- NOTE | 2025-01-02 17:30 | DVHDSRES ---
Discharge Summary Date of Admission Resident Creating Document: YOON BORREGO RESIDENT Dec 29, 2024 at 07:25 Date of Discharge: Jan 02, 2025 Admitting Diagnosis Cellulitis of the left lower leg Wounds: Wound was Present on the cedeño of the Lt tibia Labs/Diagnostic Data: Laboratory Results Test 01/02/25 17:06 01/02/25 06:24 01/02/25 02:00 01/01/25 06:36 White Blood Count 10.4 10^3/uL (4.4-10.8) Red Blood Count 4.24 10^6/uL (4.5-5.90) Hemoglobin 12.4 g/dL (13.5-17.5) Hematocrit 37.0 % (41.0-53.0) Mean Corpuscular Volume 87.2 fL (80.0-100.0) Mean Corpuscular Hemoglobin 29.2 pg (28.0-32.0) Mean Corpuscular Hemoglobin Concent 33.4 g/dL (32.0-36.0) Red Cell Distribution Width 14.2 % (11.8-14.3) Platelet Count 579 10^3/uL (140-450) Mean Platelet Volume 7.7 fL (6.9-10.8) Neutrophils (%) (Auto) 66.4 % (37.0-80.0) Lymphocytes (%) (Auto) 18.9 % (10.0-50.0) Monocytes (%) (Auto) 10.1 % (0.0-12.0) Eosinophils (%) (Auto) 2.7 % (0.0-7.0) Basophils (%) (Auto) 1.9 % (0.0-2.0) Neutrophils # (Auto) 6.9 10 ^3/uL (1.6-8.6) Lymphocytes # (Auto) 2.0 10 ^3/uL (0.4-5.4) Monocytes # (Auto) 1.0 10 ^3/uL (0-1.3) Eosinophils # (Auto) 0.3 10 ^3/uL (0-0.8) Basophils # (Auto) 0.2 10 ^3/uL (0-0.2) Nucleated Red Blood Cells 0.0 % Creatinine 0.73 mg/dL (0.700-1.30) Glomerular Filtration Rate Calc 109 mL/min (>90) Vancomycin Level Trough 10.9 ug/mL (5-10) Sodium Level 133 mmol/L (136-145) Potassium Level 4.2 mmol/L (3.5-5.1) Chloride Level 99 mmol/L (98-107) Carbon Dioxide Level 25 mmol/L (20-31) Anion Gap 9 (5-15) Blood Urea Nitrogen 14 mg/dL (9-23) BUN/Creatinine Ratio 17.9 (10.0-20.0) Serum Glucose 130 mg/dL (74-106) Calcium Level 9.4 mg/dL (8.7-10.4) Test 12/30/24 05:44 12/29/24 12:20 12/29/24 07:01 12/29/24 03:40 Total Bilirubin 0.4 mg/dL (0.2-1.0) Aspartate Amino Transferase (AST) 15 U/L (13-40) Alanine Aminotransferase (ALT) 18 U/L (7-40) Alkaline Phosphatase 50 U/L (46-116) B-Type Natriuretic Peptide 93.60 pg/mL (0-100) Total Protein 7.4 g/dL (5.7-8.2) Albumin 3.9 g/dL (3.2-4.8) Urine Color Light-yellow (Yellow) Urine Clarity Clear (Clear) Urine pH 7.0 (5.0-9.0) Urine Specific [place] 1.005 (1.001-1.035) Urine Protein Negative (Negative) Urine Ketones Negative (Negative) Urine Blood Negative /uL (Negative) Urine Nitrite Negative (Negative) Urine Bilirubin Negative (Negative) Urine Urobilinogen Normal mg/dL (Negative) Urine Leukocyte Esterase Negative /uL (Negative) Urine RBC 1 /hpf (0 - 3) Urine Microscopic WBC /HPF (0-3) Urine Squamous Epithelial Cells None seen /hpf (<5) Urine Bacteria None seen /hpf (None Seen) Urine Glucose Normal mg/dL (Normal) Lactic Acid Level 1.0 mmol/L (0.4-2.0) Hemoglobin A1c 5.6 % A1C (<5.7) Triglycerides Level 91 mg/dL (< 150) Cholesterol Level 120 mg/dL (< 200) LDL Cholesterol 79 mg/dL (< 100) HDL Cholesterol 27 mg/dL (40-59) Other Laboratory Tests 01/02/25 06:24 01/01/25 06:36 Brief Hx & Hospital Course: This is a 54-year-old male with past medical history of CHF, hypertension, chronic low back pain, nicotine dependence, polysubstance abuse disorder presented to the ED with a chief complaint of the left lower extremity swelling and discharge since 4 days prior to this admission. patient stated that left lower leg swelling started 4 days ago getting worse and also noticing some pustular discharge from of the left lower leg prompted this visit. the patient denies, chills, fever, flu-like symptoms, chest pain, shortness of breath, any sick contact, or any change in the bowel and bladder. Hospital course: Patient was initially presented with possible cellulitis of the left lower leg and SIRS due to the cellulitis. CT scan of the lower extremity demonstrated severe diffuse subcutaneous soft tissue edema and swelling most prominent at the dorsum of the foot and ankle and there is suggestion of soft tissue ulceration of the medial calf. Doppler scan of the left lower leg demonstrated no left femoropopliteal venous thrombosis and enlarged left inguinal node. Patient was treated with IV vancomycin as per pharmacy, IV ceftriaxone 1 g daily. Podiatry evaluated the patient and mentioned patient does not need any intervention and recommended management of cellulitis. chest x-ray demonstrated cardiomegaly with pulmonary vascular congestion and bilateral patchy airspace opacities and echo showed EF 60%, mild TR, concentric LVH with biatrial enlargement. cardiology was also in board and recommended Lasix 40 mg IV daily, metoprolol succinate 50 mg and lisinopril 10 mg daily. Today during rounds patient mentioned improved swelling of the left leg and patient is able to bear weight on the left leg now. Discharge plan was discussed with the patient and all questions were answered. Patient is being discharged to home with Augmentin 875 mg p.o. b.i.d.for 7 days, doxycycline 100 mg b.i.d. for 7 days, lisinopril 2.5 mg daily, metoprolol succinate 25 mg daily and Lasix 20 mg daily. Patient was also advised to follow up with [place] clinic in 1 week. Physical examination: General Appearance: Alert, Oriented X3, Cooperative, No acute distress HEENT: Atraumatic, PERRLA, EOMI, Mucous membrane moist/pink Respiratory: Clear to auscultation, Normal air movement Cardiovascular: Regular rate, Normal S1, Normal S2, No murmurs, no chest wall tenderness Abdominal: Normal bowel sounds, Soft, No tenderness, No hepatospenomegaly, No masses Extremities: Mild swelling and erythema of the lt lower leg, No clubbing, No cyanosis, No edema, Normal pulses. Skin: No rashes, No breakdown, No significant lesion Neuro: Normal gait, Normal speech, Strength at 5/5 X4 ext, Normal tone, Sensation intact, Cranial nerves 3-12 NL, Reflexes 2+ Psych/Mental Status: Mental status NL, Mood NL Consults/Reason for consult Cardiology and Podiatry were consulted Operations or Procedures INDICATION: Lt lower leg cellulitis COMPARISON: CT RT LOWER EXTREMITY W CON on DOS: 04/06/24 FINDINGS: The alignment is normal. The joint spaces are normal. There is no fracture, dislocation or aggressive osseous lesion. There is no joint effusion. Severe diffuse subcutaneous soft-tissue edema and swelling most prominent at the dorsum of the foot and ankle. There is suggestion of soft-tissue ulceration at the medial calf. IMPRESSION: Findings are suggestive of cellulitis. Left lower extremity venous duplex Findings: The common femoral vein demonstrates appropriate compressibility and waveform variability. There is compressibility/patency of the great saphenous vein at the proximal thigh. The femoral vein demonstrates appropriate compressibility and waveform variability. The deep femoral vein demonstrates appropriate compressibility and waveform variability. The popliteal vein demonstrates appropriate compressibility and waveform variability. There is normal compressibility at the tibioperoneal trunk. Enlarged left inguinal lymph node measures 3.7 x 2.7 x 1.4 cm. Impression: 1. No left femoropopliteal venous thrombosis. 2. Enlarged left inguinal lymph node. Condition at Discharge: Guarded Final Diagnosis/Problems List # Cellulitis of the left lower leg # SIRS due to above # Possible acute exacerbation of chronic diastolic heart failure # Hypertensive heart disease # Nicotine dependence # polysubstance abuse disorder Discharge Disposition: Home Discharge Instruct/Medications Diet: Cardiac 2g Na,low cholest Activity: No Restrictions, As Tolerated Follow Up/Referral: Follow up with [place] clinic in 1 week Medications: Augmentin 875mg b.i.d. for 7 days Doxycycline 100 mg bid for 7 days Lisinopril 2.5 mg daily Lasix 20 mg daily Metoprolol succinate ER 25 mg daily Discharge Statement: "Patient was advised to return to the ER or call 911 if any headaches, dizziness, shortness of breath, chest pain, abdominal pain, bleeding, fevers, or worsening of medical condition. Patient was counseled about treatment plan, medications, possible side effects, patientverbalized understanding. All questions were answered to the best of my ability. This discharge took greater then 30 minutes in planning, reviewing documentation, counseling the patient, and discussing with other team members." ASSESSMENT ASSESSMENT Assessment # Cellulitis of the left lower leg # SIRS due to above # Possible acute exacerbation of chronic diastolic heart failure # Hypertensive heart disease # Nicotine dependence # polysubstance abuse disorder Date of Service: Jan 02, 2025 Billing Provider: VANESSA VALDES MD Common Visit Codes: [id number] DISCH DAY >30min YOON BORREGO RESIDENT Jan 02, 2025 17:30 VANESSA VALDES MD Jan 02, 2025 18:22
[2025-01-02 18:10] LABS: Amphetamine Screen, Urine Pos (NEGATIVE); Barbiturate Scree,Urine Neg (NEGATIVE); Benzodiazephine Screen, Urine Neg (NEGATIVE); Cannabinoid Screen, Urine Neg (NEGATIVE); Cocaine Screen, Urine Neg (NEGATIVE); Opiate Scree,Urine Pos (NEGATIVE); Phencyclidine Screen, Urine Neg (NEGATIVE)
== END 2025-01-02 18:40 | disposition home or self-care (01) | DRG 194 ==
LOC: EDBD 01:29 → ER 01:29 → OVERFLOW 07:25 → TELE-WESTW 10:08 → WEST WING 12-30 21:16
PROVIDERS: ADMIT Internal Medicine; ATTEND Internal Medicine
DX: I11.0 Hypertensive heart disease with heart failure (principal); L03.116 Cellulitis of left lower limb; R65.10 Systemic inflammatory response syndrome (SIRS) of non-infectious origin without acute organ dysfunction; I50.33 Acute on chronic diastolic (congestive) heart failure; F11.90 Opioid use, unspecified, uncomplicated; F12.10 Cannabis abuse, uncomplicated; F15.10 Other stimulant abuse, uncomplicated; F17.200 Nicotine dependence, unspecified, uncomplicated; G89.29 Other chronic pain; Z91.148 Patient's other noncompliance with medication regimen for other reason; Z88.0 Allergy status to penicillin; Z82.49 Family history of ischemic heart disease and other diseases of the circulatory system; Z71.6 Tobacco abuse counseling; Z79.899 Other long term (current) drug therapy
CPT/HCPCS: 36415; 71045; 73701; 80048; 80053; 80061; 80202; 80307; 81001; 82565; 83036; 83605; 83880; 85025; 87040; 87077; 87081; 87086; 87186; 93306; 93971; 96365; G0378; J2405